=== PATIENT | male | born 1965 | race Caucasian/White ===

== ENCOUNTER 2021-09-02 22:28 | Emergency (ER) | payer OTHER ==
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
[2021-09-03 00:54] VITALS: RESP 20
[2021-09-03 01:00] VITALS: BP 141/78; PULSE 89; TEMP 97.9
== END 2021-09-03 00:45 | disposition other institution (70) ==
LOC: EC 22:28
DX: S00.01XA Abrasion of scalp, initial encounter (principal); S60.512A Abrasion of left hand, initial encounter; S60.511A Abrasion of right hand, initial encounter; F17.200 Nicotine dependence, unspecified, uncomplicated; F12.90 Cannabis use, unspecified, uncomplicated; Y35.811A Legal intervention involving manhandling, law enforcement official injured, initial encounter
CPT/HCPCS: 99284

== ENCOUNTER 2023-05-16 00:29 | Emergency (ER) | payer OTHER ==
[2023-05-16] MEDS ORDERED: SULFAMETHOX-TMP 800-160MG 1 EACH TAB PO STA (04:36)
--- NOTE | 2023-05-16 04:50 | ED ---
Skin/Abscess/FB HPI - General Chief complaint: Skin/Abscess/Foreign Body Stated complaint: Syncope Time Seen by Provider: 05/16/23 04:28 Source: patient Mode of arrival: EMS Limitations: no limitations - History of Present Illness Initial comments: This patient is 58-year-old man who presents to have evaluation for what he believes is infection in the right groin. The patient noticed that there were some small bumps that started draining. He has had previous abscess. Patient denies systemic symptoms, no fever or chills, chest pain, palpitations, or other symptoms. MD complaint: abscess/boil Onset/Timin -: days(s) Tetanus Up to Date: yes Location: genitals Severity: mild Improves with: none Worsens with: none Associated symptoms: denies other symptoms Treatments Prior to Arrival: attempted to drain pus at home - Related Data Previous Rx's Medication Instructions Recorded Albuterol Sulfate [Proair Hfa] 2 puff INHALATION Q6HR PRN #1 02/17/15 inhaler Amoxic-Pot Clav 875-125Mg 1 each PO Q12HR #20 tablet 02/17/15 [Augmentin Xr 875-125] guaiFENesin-Coden 100-10MG/5ML 10 ml PO Q4HR PRN #250 ml 02/17/15 [Robitussin AC] predniSONE [Deltasone] 20 mg PO BID #10 tab 02/17/15 Sulfamethox-Tmp 800-160Mg [Bactrim 2 each PO Q12HR #28 tab 05/16/23 Ds] Allergies Allergy/AdvReac Type Severity Reaction Status Date / Time No Known Allergies Allergy Verified 02/17/15 13:18 Review of Systems ROS Statement: Those systems with pertinent positive or pertinent negative responses have been documented in the HPI. ROS Other: All systems not noted in ROS Statement are negative. Constitutional: Denies: fever, chills Respiratory: Denies: dyspnea Cardiovascular: Denies: chest pain, palpitations Skin: Reports: as per HPI, other Past Medical History Past Medical History: No Reported History History of Any Multi-Drug Resistant Organisms: None Reported Additional Past Surgical History / Comment(s): 5 knee surgies Past Psychological History: No Psychological Hx Reported Smoking Status: Current every day smoker Past Alcohol Use History: Occasional Past Drug Use History: Marijuana General Exam Limitations: no limitations General appearance: alert, in no apparent distress Respiratory exam: Present: normal lung sounds bilaterally. Absent: respiratory distress, wheezes, rales, rhonchi, stridor Cardiovascular Exam: Present: regular rate, normal rhythm, normal heart sounds. Absent: systolic murmur, diastolic murmur, rubs, gallop Skin exam: Present: warm, dry, normal color, other (The patient has small area that appears consistent with folliculitis in the right groin area. There is no significant depth. No palpable fluctuance.) Course Vital Signs 05/16/23 05/16/23 00:54 06:56 Temperature 98.1 F 98.2 F Pulse Rate 88 84 Respiratory 18 16 Rate Blood Pressure 108/67 116/71 O2 Sat by Pulse 96 96 Oximetry Medical Decision Making - Medical Decision Making Was pt. sent in by a medical professional or institution ([facility], FOOD STYLIST, urgent care, hospital, or custodial...) When possible be specific @ -[No] Did you speak to anyone other than the patient for history (EMS, parent, family, police, friend...)? What history was obtained from this source @ -[No] Did you review nursing and triage notes (agree or disagree)? Why? @ -[I reviewed and agree with nursing and triage notes] Were old charts reviewed (outside hosp., previous admission, EMS record, old EKG, old radiological studies, urgent care reports/EKG's, custodial records)? Report findings @ -[No old charts were reviewed] Differential Diagnosis (chest pain, altered mental status, abdominal pain women, abdominal pain men, vaginal bleeding, weakness, fever, dyspnea, syncope, headache, dizziness, GI bleed, back pain, seizure, CVA, palpatations, mental health, musculoskeletal)? @ -[The differential diagnosis for the patient's infection includes folliculitis, cellulitis, abscess, amongst other conditions. EKG interpreted by me (3pts min.). @ -[As above] X-rays interpreted by me (1pt min.). @ -[None done] CT interpreted by me (1pt min.). @ -[None done] U/S interpreted by me (1pt. min.). @ -[None done] What testing was considered but not performed or refused? (CT, X-rays, U/S, labs)? Why? @ -[None] What meds were considered but not given or refused? Why? @ -[None] Did you discuss the management of the patient with other professionals (professionals i.e. , PA, FOOD STYLIST, lab, RT, psych nurse, clinical social worker, cullet crusher, teacher, juvenile probation officer, case assistant)? Give summary @ -[No] Was smoking cessation discussed for >3mins.? @ -[No] Was critical care preformed (if so, how long)? @ -[No] Were there social determinants of health that impacted care today? How? (Homelessness, low income, unemployed, alcoholism, drug addiction, transportation, low edu. Level, literacy, decrease access to med. care, fci, rehab)? @ -[No] Was there de-escalation of care discussed even if they declined (Discuss DNR or withdrawal of care, Hospice)? DNR status @ -[No] What co-morbidities impacted this encounter? (DM, HTN, Smoking, COPD, CAD, Cancer, CVA, ARF, Chemo, Hep., AIDS, mental health diagnosis, sleep apnea, morbid obesity)? @ -[None] Was patient admitted / discharged? Hospital course, mention meds given and route, prescriptions, significant lab abnormalities, going to OR and other pertinent info. @ -[Patient is 58-year-old man with what appears be folliculitis. We will start antibiotics and patient have close follow-up. We discussed further care as well as return parameters. Undiagnosed new problem with uncertain prognosis? @ -[No] Drug Therapy requiring intensive monitoring for toxicity (Heparin, Nitro, Insulin, Cardizem)? @ -[No] Were any procedures done? @ -[No] Diagnosis/symptom? @ -Folliculitis Acute, or Chronic, or Acute on Chronic? @ -[Acute Uncomplicated (without systemic symptoms) or Complicated (systemic symptoms)? @ -[Uncomplicated Side effects of treatment? @ -[No] Exacerbation, Progression, or Severe Exacerbation? @ -[No] Poses a threat to life or bodily function? How? (Chest pain, [place], [place], pneumonia, PE, COPD, DKA, ARF, appy, cholecystitis, CVA, Diverticulitis, Homicidal, Suicidal, threat to staff... and all critical care pts) @ -[No] - Lab Data Lab Results 05/16/23 Range/Units 04:56 Chlamydia DNA (PCR) Negative (Negative) N.gonorrhoeae DNA Probe Negative (Negative) Disposition Clinical Impression: Folliculitis Disposition: HOME SELF-CARE Condition: Good Instructions (If sedation given, give patient instructions): Folliculitis (ED) Prescriptions: Sulfamethox-Tmp 800-160Mg [Bactrim Ds] 2 each PO Q12HR #28 tab Is patient prescribed a controlled substance at d/c from ED?: No Referrals: None,Stated [Primary Care Provider] - 1-2 days
[2023-05-16 07:19] VITALS: BP 116/71; PULSE 84; RESP 16; TEMP 98.2
[2023-05-17 14:43] LABS: C. trachomatis,PCR Negative (Negative)
[2023-05-17 15:15] LABS: N. gonorrhoeae,PCR Negative (Negative)
== END 2023-05-16 06:57 | disposition home or self-care (01) ==
LOC: EC 00:29
DX: L73.9 Follicular disorder, unspecified (principal); F17.200 Nicotine dependence, unspecified, uncomplicated
CPT/HCPCS: 87491; 87591; 99284

== ENCOUNTER 2023-07-28 13:16 | Inpatient (IN) | payer OTHER ==
[2023-07-28] MEDS: KETOROLAC 15 MG/ML 1 ML VIAL IVP STA (15:22)
[2023-07-28] MEDS: HYDROmorphone 1 MG/ML 1 ML SYRINGE IVP STA (15:23)
--- NOTE | 2023-07-28 15:23 | ED ---
General Adult HPI - General Chief complaint: Shortness of Breath Stated complaint: headache/dizziness Time Seen by Provider: 07/28/23 14:15 Source: patient, RN notes reviewed, old records reviewed Mode of arrival: wheelchair Limitations: no limitations - History of Present Illness Initial comments: This is a 58-year-old male who presents to the emergency department stating 6 days ago he fell down the steps hit his head and lost consciousness and he went to [facility] where they determined he had 6 rib fractures on the left. Patient states he has had a headache ever since but they never did CAT scan. Patient denies any neck pain. Patient has numbness weakness. Patient states the rib pain is significant and it is not improving at all. Patient states he is not short of breath but it hurts to take any kind of deep breath. Patient de nies any new pain. Patient has any extremity pain. Patient has abdominal pain. Patient [place] any fever chills or cough - Related Data Home Medications Medication Instructions Recorded Confirmed Ibuprofen [Motrin] 600 mg PO Q8HR PRN 07/28/23 07/28/23 Allergies Allergy/AdvReac Type Severity Reaction Status Date / Time No Known Allergies Allergy Verified 07/28/23 14:25 Review of Systems ROS Statement: Those systems with pertinent positive or pertinent negative responses have been documented in the HPI. ROS Other: All systems not noted in ROS Statement are negative. Past Medical History Past Medical History: No Reported History History of Any Multi-Drug Resistant Organisms: None Reported Additional Past Surgical History / Comment(s): 5 knee surgies Past Psychological History: No Psychological Hx Reported Smoking Status: Current every day smoker Past Alcohol Use History: Occasional Past Drug Use History: Marijuana General Exam - General Exam Comments Initial Comments: GENERAL: Patient is well-developed and well-nourished. Patient is nontoxic and well- hydrated and is in moderate distress. ENT: Neck is soft and supple. No significant lymphadenopathy is noted. Oropharynx is clear. Moist mucous membranes. Neck has full range of motion without eliciting any pain. EYES: The sclera were anicteric and conjunctiva were pink and moist. Extraocular movements were intact and pupils were equal round and reactive to light. Eyelids were unremarkable. PULMONARY: Difficult to hear breath sounds because patient cannot take a deep breath without splinting CARDIOVASCULAR: There is a regular rate and rhythm without any murmurs gallops or rubs. Patient has significant rib pain at about ribs 6 through 12. No crepitus is felt ABDOMEN: Soft and nontender with normal bowel sounds. SKIN: Skin is clear with no lesions or rashes and otherwise unremarkable. NEUROLOGIC: Patient is alert and oriented x3. Cranial nerves II through XII are grossly intact. Motor and sensory are also intact. Normal speech, volume and content. Symmetrical smile. MUSCULOSKELETAL: Normal extremities with adequate strength and full range of motion. LYMPHATICS: No significant lymphadenopathy is noted PSYCHIATRIC: Normal psychiatric evaluation. Limitations: no limitations Course Vital Signs 07/28/23 13:38 Temperature 99.6 F Pulse Rate 108 H Respiratory 18 Rate Blood Pressure 155/79 O2 Sat by Pulse 96 Oximetry Medical Decision Making - Medical Decision Making Was pt. sent in by a medical professional or institution (, PA, GLOBAL RECRUITER, urgent care, hospital, or intermediate...) When possible be specific @ -No Did you speak to anyone other than the patient for history (EMS, parent, family, police, friend...)? What history was obtained from this source @ -No Did you review nursing and triage notes (agree or disagree)? Why? @ -I reviewed and agree with nursing and triage notes Were old charts reviewed (outside hosp., previous admission, EMS record, old EKG, old radiological studies, urgent care reports/EKG's, intermediate records)? Report findings @ -No old charts were reviewed Differential Diagnosis (chest pain, altered mental status, abdominal pain women, abdominal pain men, vaginal bleeding, weakness, fever, dyspnea, syncope, headac he, dizziness, GI bleed, back pain, seizure, CVA, palpatations, mental health, musculoskeletal)? @ -Pneumothorax, pleural effusion, hemothorax, multiple rib fractures, flail chest, spinal fracture, subarachnoid, subdural, epidural, skull fracture, cervical spine fracture, this is not an all-inclusive list EKG interpreted by me (3pts min.). @ -As above X-rays interpreted by me (1pt min.). @ -None done CT interpreted by me (1pt min.). @ -CT of the brain and C-spine showed no acute abnormality. CT of the chest shows fractures of ribs 5 through 12. There is a small pleural effusion on the left. Patient also has a T12 compression fracture with some retropulsion into the spinal canal. U/S interpreted by me (1pt. min.). @ -None done What testing was considered but not performed or refused? (CT, X-rays, U/S, labs)? Why? @ -None What meds were considered but not given or refused? Why? @ -None Did you discuss the management of the patient with other professionals (professionals i.e. Dr., PA, GLOBAL RECRUITER, lab, RT, psych nurse, social media assistant, buyer, teacher, mortgage loan officer, rehabilitation case coordinator)? Give summary @ -I spoke with Dr. Carrasco he agreed to admit the patient admit the patient I consulted sound physicians and I spoke with Dr. Mccall and he agreed to be on consult as well he will try to take the patient to surgery on Tuesday Was smoking cessation discussed for >3mins.? @ -No Was critical care preformed (if so, how long)? @ -35 minutes Were there social determinants of health that impacted care today? How? (Homelessness, low income, unemployed, alcoholism, drug addiction, transportation, low edu. Level, literacy, decrease access to med. care, fpc, rehab)? @ -No Was there de-escalation of care discussed even if they declined (Discuss DNR or withdrawal of care, Hospice)? DNR status @ -No What co-morbidities impacted this encounter? (DM, HTN, Smoking, COPD, CAD, Cancer, CVA, ARF, Chemo, Hep., AIDS, mental health diagnosis, sleep apnea, morbid obesity)? @ -None Was patient admitted / discharged? Hospital course, mention meds given and route, prescriptions, significant lab abnormalities, going to OR and other pertinent info. @ -Patient had CTs that showed fractures of the ribs 5 through [address] showed T12 fracture with fragments going into the spinal canal. Patient will be admitted to Dr. Carrasco consults will be done with ligia physicians as well as Dr. Mccall who anticipates taking the patient to surgery on Tuesday Undiagnosed new problem with uncertain prognosis? @ -No Drug Therapy requiring intensive monitoring for toxicity (Heparin, Nitro, Insulin, Cardizem)? @ -No Were any procedures done? @ -No Diagnosis/symptom? @ -T12 fracture with retropulsion Acute, or Chronic, or Acute on Chronic? @ -Acute Uncomplicated (without systemic symptoms) or Complicated (systemic symptoms)? @ -Complicated Side effects of treatment? @ -No Exacerbation, Progression, or Severe Exacerbation? @ -No Poses a threat to life or bodily function? How? (Chest pain, [place], [place], pneumonia, PE, COPD, DKA, ARF, appy, cholecystitis, CVA, Diverticulitis, Homicidal, Suicidal, threat to staff... and all critical care pts) @ -Yes this could lead to paralysis Diagnosis/symptom? @ -Multiple rib fractures Acute, or Chronic, or Acute on Chronic? @ -Acute Uncomplicated (without systemic symptoms) or Complicated (systemic symptoms)? @ -Complicated Side effects of treatment? @ -None Exacerbation, Progression, or Severe Exacerbation] @ -No Poses a threat to life or bodily function? @ -Yes this could lead to hypoxia and endorgan dysfunction Diagnosis/symptom? @ -Concussion Acute, or Chronic, or Acute on Chronic? @ -Acute Uncomplicated (without systemic symptoms) or Complicated (systemic symptoms)? @ -Complicated Side effects of treatment? @ -None Exacerbation, Progression, or Severe Exacerbation] @ -No Poses a threat to life or bodily function? @ -No - Lab Data Result diagrams: 07/28/23 15:22 07/28/23 15:22 Lab Results 07/28/23 07/28/23 Range/Units 15:22 15:22 WBC 5.9 (3.8-10.6) k/uL RBC 4.42 (4.30-5.90) m/uL Hgb 14.1 (13.0-17.5) gm/dL Hct 41.8 (39.0-53.0) % MCV 94.5 (80.0-100.0) fL MCH 31.8 (25.0-35.0) pg MCHC 33.6 (31.0-37.0) g/dL RDW 14.4 (11.5-15.5) % Plt Count 153 (150-450) k/uL MPV 7.3 Neutrophils % 73 % Lymphocytes % 10 % Monocytes % 13 % Eosinophils % 1 % Basophils % 1 % Neutrophils # 4.3 (1.3-7.7) k/uL Lymphocytes # 0.6 L (1.0-4.8) k/uL Monocytes # 0.8 (0-1.0) k/uL Eosinophils # 0.0 (0-0.7) k/uL Basophils # 0.1 (0-0.2) k/uL Sodium 131 L (137-145) mmol/L Potassium 4.4 (3.5-5.1) mmol/L Chloride 100 (98-107) mmol/L Carbon Dioxide 27 (22-30) mmol/L Anion Gap 4 mmol/L BUN 18 (9-20) mg/dL Creatinine 0.63 L (0.66-1.25) mg/dL Est GFR (CKD-EPI)AfAm >90 (>60 ml/min/1.73 sqM) Est GFR (CKD-EPI)NonAf >90 (>60 ml/min/1.73 sqM) Glucose 110 H (74-99) mg/dL Calcium 8.9 (8.4-10.2) mg/dL Total Bilirubin 0.9 (0.2-1.3) mg/dL AST 148 H (17-59) U/L ALT 56 H (4-49) U/L Alkaline Phosphatase 99 (38-126) U/L Total Protein 7.3 (6.3-8.2) g/dL Albumin 3.2 L (3.5-5.0) g/dL Disposition Clinical Impression: Traumatic compression fracture of T12 thoracic vertebra, Multiple rib fractures, Concussion Disposition: ADMITTED IP TO THIS [facility] Referrals: Roberto Hanley Jr, [Primary Care Provider] - 1-2 days Time of Disposition: 17:16
[2023-07-28 15:49] LABS: Basophils # (A) 0.1 k/uL (0-0.2); Basophils % (A) 1 %; Eosinophils % (A) 1 %; HCT 41.8 % (39.0-53.0); HGB 14.1 gm/dL (13.0-17.5); Lymphocytes # (A) 0.6 k/uL (1.0-4.8); Lymphocytes % (A) 10 %; MCH 31.8 pg (25.0-35.0); MCHC 33.6 g/dL (31.0-37.0); MCV 94.5 fL (80.0-100.0); Mean Platelet Volume 7.3; Monocytes # (A) 0.8 k/uL (0-1.0); Monocytes % (A) 13 %; Neutrophils # (A) 4.3 k/uL (1.3-7.7); Neutrophils % (A) 73 %; Platelet Count 153 k/uL (150-450); RBC 4.42 m/uL (4.30-5.90); RDW 14.4 % (11.5-15.5); WBC 5.9 k/uL (3.8-10.6)
--- NOTE | 2023-07-28 16:02 | CT ---
EXAMINATION TYPE: CT brain javierine wo con DATE OF EXAM: 07/28/2023 COMPARISON: None available. HISTORY: Fall downstairs. CT DLP: [id number] mGycm Automated exposure control for dose reduction was used. TECHNIQUE: CT scan of the head and cervical spine are performed without contrast. FINDINGS: There is no acute intracranial hemorrhage, mass effect, or midline shift identified. The ventricles and sulci are within normal limits in size. The globes are intact and the visualized sin uses are clear. Cervical spine is visualized in its entirety from C1 through upper thoracic levels and demonstrates s atisfactory alignment without evidence of acute fracture or dislocation. Prevertebral soft tissue ap pears within normal limits. The C1-C2 articulation is unremarkable. Scattered degenerative disc, fa cet and uncovertebral joint changes are seen. IMPRESSION: 1. There is no acute fracture or dislocation evident in the cervical spine. 2. No acute intracranial hemorrhage, mass effect, or midline shift is seen.
--- NOTE | 2023-07-28 16:09 | CT ---
Exam: CT Chest without contrast. Date: 07/28/2023. Comparison: None History: Fall down stairs. Technique: CT examination of the chest was performed without contrast. Coronal and sagittal reformats were performed. CT dose lowering techniques were used, to include: automated exposure control, adjus tment for patient size, and/or use of iterative reconstruction. FINDINGS: Mediastinum and Jessie: There is no axillary, mediastinal or hilar lymphadenopathy. Pleural and Pericardial spaces: Trace left pleural effusion is seen. Upper Abdomen: There is a diffuse nodular contour to the liver which is compatible with cirrhosis. Th ere is a small sliding hiatal hernia. Spleen is enlarged measuring 14.1 cm. Cardiovascular: The thoracic aorta is normal in size. Patchy coronary calcium is seen. Lung Parenchyma and Airways: There are a few scattered bands of opacity seen throughout the lungs rommel aterally which are likely atelectasis. Bones: Nondisplaced fracture of the posterior left fifth rib. Nondisplaced fracture of the posterior left sixth rib. Moderately displaced fracture of the posterior left seventh rib. Moderately displaced fracture of the posterior left eighth rib. Nondisplaced fracture of the posterior left ninth rib. No ndisplaced fracture of the posterior left 10th rib. Mild to moderately displaced fracture of the post erior left 11th rib. Nondisplaced fracture of the posterior left 12th rib. Is placed fracture of the anterolateral left sixth rib. Mildly displaced fracture of the lateral left seventh rib. Nondisplaced fracture of the anterolateral left eighth rib. Nondisplaced fractures anterolateral left ninth rib. There is a compression deformity of the L1 vertebral body which has an acute appearance and has appro ximately 60 to slightly greater than 60% vertebral body height loss. A retropulsed fragment is seen w ith moderate central canal stenosis and possibly cord compression. IMPRESSION: 1. Numerous left-sided rib fractures as above. 2. Acute compression deformity of the superior endplate of the T12 vertebral body with approximately 60% vertebral body leg loss. A retropulsed fragment is seen causing moderate central canal stenosis a nd possible compression of the cord. 3. Trace left pleural effusion. 4. Cirrhosis and splenomegaly. 5. Mild coronary artery calcification. 6. Hiatal hernia.
[2023-07-28 16:16] LABS: ALT 56 U/L (4-49); AST 148 U/L (17-59); African American GFR (CKD) >90 (>60 ml/min/1.73 sqM); Albumin 3.2 g/dL (3.5-5.0); Alkaline Phosphatase 99 U/L (38-126); Anion Gap 4 mmol/L; Blood Urea Nitrogen 18 mg/dL (9-20); Calcium 8.9 mg/dL (8.4-10.2); Carbon Dioxide 27 mmol/L (22-30); Chloride 100 mmol/L (98-107); Glucose 110 mg/dL (74-99); Non-African American GFR(CKD) >90 (>60 ml/min/1.73 sqM); Potassium 4.4 mmol/L (3.5-5.1); Sodium 131 mmol/L (137-145); Total Bilirubin 0.9 mg/dL (0.2-1.3); Total Protein 7.3 g/dL (6.3-8.2)
[2023-07-28] MEDS ORDERED: MORPHINE SULFATE 2 MG/ML SYRINGE IVP PRN (17:20)
[2023-07-28] MEDS ORDERED: NALOXONE 0.4 MG/ML 1 ML VIAL IV PRN (17:20)
[2023-07-28] MEDS: SODIUM CHLORIDE 0.9% 1,000 ML IV ONE (17:30)
[2023-07-28] MEDS: MORPHINE SULFATE 4 MG/ML SYRINGE IVP PRN (17:30)
--- NOTE | 2023-07-28 18:17 | P.PN ---
Progress Note - Text Progress Note Date: 07/28/23 Ct reviewed. Discussed with ED provider. Pt has unstable fracture at T12 from fall down stairs. Also has multiple rib fractures and TVP fractures. The T12 fracture will need stabilization as it is a burst fracture with posterior element involvement. There is also severe spondylosis at L4-5, however this is likely a chronic condition which could be exacerbated by the fall. There is moderate stenosis related to the T12 fracture and retropulsed fragment as well as the height loss due to the burst. We will plan on surgical fixation with open treatment of T12 fracture and T11-L1 stabilization. Earliest time available and pending clearances. Right now planning for 07/30/23 in AM. W ould recommend pt be bed rest at this time. Would recommend pain control. Needs medical clearances for surgical intervention. Full consult pending.
--- NOTE | 2023-07-28 18:19 | CT ---
EXAMINATION TYPE: CT thor lumbar spine wo con DATE OF EXAM: 07/28/2023 HISTORY: Fell down stairs fx CT DLP: 1697 mGycm. Automated exposure control for dose reduction was used. COMPARISON: Please note same day CT chest and CT brain/C-spine reports. FINDINGS/IMPRESSION: There is a complex T12 vertebral segment fracture with a retropulsed fragment narrowing the canal to 40% of its usual area. The vertical height of the vertebral body is approximately one half of its nor mal height. Fracture lines seen at the junction of the vertebral body with the pedicles bilaterally a nd a fracture line through the posterior elements is also present. Other fractures include: There are posterior rib fractures from T4 through T12, nearly all of which are nondisplaced or mildly displaced but T8 shows 1 shaft width anterior displacement (page 71 of 190) and T7 shows one half sh aft width anterior displacement (image 61 of 190). Right L4 transverse process shows nondisplaced fracture. Right L5 transverse process shows displaced fracture. Incidentals: Moderate coronary calcifications. Lower esophageal circumferential mural thickening with periesophageal subcentimeter lymph nodes; woul d suggest nonurgent direct visualization. Advanced degenerative disc and facet changes at L4-5. Results discussed with ordering physician at 6:00 PM 07/28/2023.
[2023-07-28] MEDS: MAG HYDROX/AL HYDROX/SIMETH 30 ML CUP PO ONE (18:38)
[2023-07-28] MEDS: FAMOTIDINE 20 MG/2 ML VIAL IV STA (18:39)
[2023-07-28] MEDS: LORazepam 2 MG/ML INJ IV STA (18:39)
[2023-07-28] MEDS ORDERED: HYDROmorphone 0.5 MG/0.5 ML SYRINGE IVP PRN (21:59)
[2023-07-28] MEDS: HYDROmorphone 1 MG/ML 1 ML SYRINGE IVP PRN (22:10)
[2023-07-29] MEDS: ACETAMINOPHEN TAB 325 MG TAB PO STA (02:32)
[2023-07-29] MEDS: PROCHLORPERAZINE 5 MG TAB PO STA (02:33)
--- NOTE | 2023-07-29 04:32 | P.CONS ---
History of Present Illness - Reason for Consult Consult date: 07/28/23 Medical clearance - Chief Complaint Back pain - History of Present Illness 58-year-old male no significant past medical history Patient coming in for worsening back pain he had an accidental fall about a week ago where he fell down a set of stairs hit his head lost consciousness hit his side and hit his back. At that time he was taken to [facility] for evaluation was found to have rib fracture on the left side and then was released home. Patient claims that he did not get proper care he was complaining of headache and back pain that no CAT scan was done and he was told that he is fin e. However due to not improving over the past week with increased numbness and tingling in his lower extremities and weakness along with severe left rib pain he decided to come back for evaluation Patient reports pleuritic chest pain with deep breath and movement over the left side. Reports increased difficulty with ambulation due to weakness lower extremities along with some numbness denies any changes in urinary or bowel habits. Denies any fevers or chills denies any shortness of breath denies any abdominal pain denies any bleeding. review of systems Pertinent positives as noted in HPI. All other systems were reviewed and are negative on exam Constitutional: No acute distress, conversant, pleasant Eyes: Anicteric sclerae, moist conjunctiva, Pupils equal round reactive to light ENMT: NC/AT Oropharynx clear, no erythema, or exudates Neck: Supple, no masses, or JVD No carotid bruits No thyromegaly Lungs: Clear to auscultation Clear to percussion Normal respiratory effort, no accessory muscle use Cardiovascular: Heart regular in rate and rhythm, No murmurs, gallops, or rubs No peripheral edema Abdominal: Soft Nontender, no guarding, rebound or rigidity Abdomen moving with respiration Normoactive bowel sounds Extremities: No digital cyanosis No clubbing Pedal pulses intact and symmetrical Radial pulses intact and symmetrical No calf tenderness Psychiatric: Alert and oriented to person, place and time Appropriate affect fair judgement Neuro patient able to move all 4 extremities with limited exam over bilateral lower extremity due to severe pain of lower back. Sensation to light touch is grossly intact Past Medical History Past Medical History: No Reported History Additional Past Medical History / Comment(s): psoriasis History of Any Multi-Drug Resistant Organisms: None Reported Additional Past Surgical History / Comment(s): 5 knee surgies Past Anesthesia/Blood Transfusion Reactions: No Reported Reaction Past Psychological History: No Psychological Hx Reported Smoking Status: Current every day smoker Past Alcohol Use History: Heavy Additional Past Alcohol Use History / Comment(s): Pt states that he has a fifth of vodka anywhere from 2-4 days a week. Pt states ryne he has quit before in the past and mostly drink due to pain. Past Drug Use History: Marijuana Medications and Allergies Home Medications Medication Instructions Recorded Confirmed Type Ibuprofen [Motrin] 600 mg PO Q8HR PRN 07/28/23 07/28/23 History Hydrocortisone Cream 1 applic TOPICAL BID 07/29/23 07/29/23 History [Hydrocortisone 1% Cream] Allergies Allergy/AdvReac Type Severity Reaction Status Date / Time No Known Allergies Allergy Verified 07/28/23 14:25 Physical Exam Vitals: Vital Signs Temp Pulse Pulse Resp BP BP Pulse Ox 07/29/23 01:36 100.5 F H 103 H 17 120/67 94 L 07/28/23 21:33 99.6 F 96 18 151/79 99 07/28/23 20:37 98 18 117/69 94 L 07/28/23 18:39 90 18 114/60 96 07/28/23 13:38 99.6 F 108 H 18 155/79 96 Intake and Output 07/28/23 07/28/23 07/29/23 14:59 22:59 06:59 Other: Weight 99.79 kg 99.79 kg Results CBC & Chem 7: 07/28/23 15:22 07/28/23 15:22 Labs: Abnormal Lab Results - Last 24 Hours (Table) 07/28/23 07/28/23 Range/Units 15:22 15:22 Lymphocytes # 0.6 L (1.0-4.8) k/uL Sodium 131 L (137-145) mmol/L Creatinine 0.63 L (0.66-1.25) mg/dL Glucose 110 H (74-99) mg/dL AST 148 H (17-59) U/L ALT 56 H (4-49) U/L Albumin 3.2 L (3.5-5.0) g/dL Assessment and Plan Assessment: Traumatic injury of the back secondary to accidental fall CT scan of the head no acute intracranial pathology CT scan of the chest shows numerous left-sided rib fracture Acute compression deformity of the superior endplate of the T12 vertebral body with approximately 60% vertebral body leg loss retropulsed fragment is seen causing moderate central canal stenosis and possible compression of the cord Incidental finding of cirrhosis and splenomegaly along with mild coronary artery calcification Management per primary trauma team Pain control with Dilaudid Orthopedic team planning on surgical intervention to stabilize T12 fracture Chronic GERD Incidental finding of lower esophageal circumferential mural thickening with periesophageal subcentimeter lymph node Patient counseled to consider outpatient follow-up with GI specialist for possible EGD Protonix 40 mg p.o. twice daily Patient is a 58-year-old male with no significant past medical history coming in with severe back pain and rib pain found to have multiple fractures due to accidental fall. Patient denies any recent history of myocardial infarction, CHF, seizures, arrhythmia, syncope. At baseline patient is active and functional at METS more than 4 with no limitations able to climb 2 flights of stairs with no limitations. Patient denies any history of stroke congestive heart failure coronary artery disease diabetes mellitus CKD. Labs reviewed EKG reviewed no acute ST changes. Patient can proceed to planned surgical intervention to stabilize T12 fracture with moderate but acceptable perioperative cardiovascular risk (related to type of surgery) with no modifiable risk factors at this time. This was communicated to the patient and has fianc all questions were addressed. Blood work showing white count 5.9 hemoglobin 14.1 platelets 153 Mild hyponatremia sodium 131 IV fluid hydration with normal saline Renal function otherwise unremarkable BUN 18 creatinine 0.6 potassium 4.4 Slightly elevated liver enzymes AST [address] scan suggestive of cirrhosis and splenomegaly Bilirubin is 0.9, alk phos 99 both unremarkable Albumin 3.2 Check PT/INR Patient denies any history of hepatitis Continue to monitor Thank you for this consultation
[2023-07-29] MEDS: PANTOPRAZOLE 40 MG TABLET PO SCH (06:28)
[2023-07-29] MEDS ORDERED: LORazepam 2 MG/ML INJ IV PRN ×3 (07:49)
--- NOTE | 2023-07-29 08:09 | XR ---
EXAMINATION TYPE: XR chest 1V portable DATE OF EXAM: 07/29/2023 7:50 AM CLINICAL INDICATION:Male, 58 years old with history of Chest Trauma; [facility] COMPARISON: Chest radiographs from 12/09/2010, CT 07/28/2023. TECHNIQUE: XR chest 1V portable Frontal view of the chest. FINDINGS: Rotated exam. Lungs/Pleura: There is no evidence of pleural effusion, focal consolidation, or pneumothorax. Pulmonary vascularity: Unremarkable. Heart/mediastinum: Cardiomediastinal silhouette is enlarged and stable. Musculoskeletal: Multiple left-sided rib fractures as seen on prior CT. IMPRESSION: Rotated exam with increased interstitial opacities compared to prior.
[2023-07-29 08:33] LABS: Basophils # (A) 0.04 X 10*3/uL (0.00-0.10); Basophils % (A) 0.9 %; Eosinophils # (A) 0.02 X 10*3/uL (0.04-0.35); Eosinophils % (A) 0.4 %; HCT 37.3 % (39.6-50.0); HGB 12.7 g/dL (13.0-17.0); Lymphocytes # (A) 0.83 X 10*3/uL (0.90-5.00); Lymphocytes % (A) 18.2 %; MCH 30.9 pg (27.0-32.0); MCV 90.8 FL (80.0-97.0); Mean Platelet Volume 9.8 FL (9.5-12.2); Monocytes # (A) 0.79 X 10*3/uL (0.20-1.00); Monocytes % (A) 17.4 %; NRBC Per 100 WBC 0 X 10*3/uL (0.00-0.01); Neutrophils # (A) 2.85 X 10*3/uL (1.80-7.70); Neutrophils % (A) 62.7 %; Platelet Count 144 X 10*3/uL (140-440); RBC 4.11 X 10*6/uL (4.40-5.60); RDW 14.7 % (11.5-14.5); WBC 4.55 X 10*3/uL (4.50-10.00)
[2023-07-29 08:50] LABS: INR 1.29 sec (0.93-1.11); Prothrombin Time 13.7 sec (9.9-11.9)
[2023-07-29 08:55] LABS: BUN/Creat Ratio 23.43 Ratio (12.00-20.00); Blood Urea Nitrogen 16.4 mg/dL (9.0-27.0); Carbon Dioxide 26.2 mmol/L (21.6-31.8); Chloride 100 mmol/L (96-109); Glucose 111 mg/dL (70-110); Potassium 4.2 mmol/L (3.5-5.5); Sodium 133 mmol/L (135-145)
[2023-07-29 08:56] LABS: ALT 56 U/L (10-49); AST 150 U/L (14-35); Albumin/Globulin Ratio 0.88 Ratio (1.60-3.17); Alkaline Phosphatase 81 U/L (41-126); Calcium 8.2 mg/dL (8.7-10.3); Globulin 3.4 g/dL (1.6-3.3); Total Bilirubin 0.6 mg/dL (0.3-1.2); Total Protein 6.4 g/dL (6.2-8.2)
[2023-07-29] MEDS: MULTIVITAMINS, THERA 1 EACH TAB PO SCH (09:48)
[2023-07-29] MEDS: FOLIC ACID 1 MG TAB PO SCH (09:48)
[2023-07-29] MEDS: THIAMINE 100 MG/ML 2 ML VIAL IM STA (09:48)
[2023-07-29] MEDS: IPRATROPIUM-ALBUTEROL 3 ML NEB INHALATION SCH (10:56)
--- NOTE | 2023-07-29 11:43 | P.PAINCN ---
History of Present Illness - Reason for Consult Consult date: 07/29/23 Mid back and chest wall pain - Chief Complaint Pain in OR mid back and left chest wall - History of Present Illness This is a 58-year-old gentleman who comes with compression fracture of T12 and multiple fractures on the left side. Patient is scheduled to have surgery tomorrow for decompression of vertebral fracture. The patient is getting Dilantin with IV on when necessary basis with some improvement of pain. At this time both his low mid back and chest wall bothering him significantly. Patient denies any motor or sensory loss in the lower extremities. Denies any bowel or bladder dysfunction. Pain clinic has been asked to consult mainly for pain control at this time. Past Medical History Past Medical History: No Reported History Additional Past Medical History / Comment(s): psoriasis History of Any Multi-Drug Resistant Organisms: None Reported Additional Past Surgical History / Comment(s): 5 knee surgies Past Anesthesia/Blood Transfusion Reactions: No Reported Reaction Past Psychological History: No Psychological Hx Reported Smoking Status: Current every day smoker Past Alcohol Use History: Heavy Additional Past Alcohol Use History / Comment(s): Pt states that he has a fifth of vodka anywhere from 2-4 days a week. Pt states ryne he has quit before in the past and mostly drink due to pain. Past Drug Use History: Marijuana Medications and Allergies Home Medications Medication Instructions Recorded Confirmed Type Ibuprofen [Motrin] 600 mg PO Q8HR PRN 07/28/23 07/28/23 History Hydrocortisone Cream 1 applic TOPICAL BID 07/29/23 07/29/23 History [Hydrocortisone 1% Cream] Allergies Allergy/AdvReac Type Severity Reaction Status Date / Time No Known Allergies Allergy Verified 07/28/23 14:25 Physical Exam Vitals: Vital Signs Temp Pulse Pulse Pulse Resp BP BP 07/29/23 11:09 96 07/29/23 10:56 96 07/29/23 08:12 99.1 F 97 17 141/89 07/29/23 01:36 100.5 F H 103 H 17 120/67 07/28/23 21:33 99.6 F 96 18 151/79 07/28/23 20:37 98 18 117/69 07/28/23 18:39 90 18 114/60 07/28/23 13:38 99.6 F 108 H 18 155/79 Pulse Ox 07/29/23 11:09 07/29/23 10:56 07/29/23 08:12 94 L 07/29/23 01:36 94 L 07/28/23 21:33 99 07/28/23 20:37 94 L 07/28/23 18:39 96 07/28/23 13:38 96 Intake and Output 07/28/23 07/29/23 07/29/23 22:59 06:59 14:59 Output Total 600 Balance -600 Output: Urine 600 Other: Voiding Method Urinal Weight 99.79 kg - Neurologic Limited physical examination was done secondary to patient's pain. Thoracic spine tenderness in the lower part Both midline and paraspinal areas. Bilateral lower thoracic spine paraspinal muscle tenderness. Spine range of motion limited secondary to pain. Tenderness over day posterior and anterolateral rib cage in the left side. On neurological exam, which was limited secondary to patient's pain, lower extremity motor strength at knees and ankles toes 5 over 5. Sensation to touch intact bilaterally. Results CBC & Chem 7: 07/29/23 05:45 07/29/23 05:45 Labs: Abnormal Lab Results - Last 24 Hours (Table) 07/28/23 07/28/23 07/29/23 Range/Units 15:22 15:22 05:45 RBC 4.11 L (4.40-5.60) X 10*6/uL Hgb 12.7 L (13.0-17.0) g/dL Hct 37.3 L (39.6-50.0) % RDW 14.7 H (11.5-14.5) % Lymphocytes # 0.6 L 0.83 L (1.0-4.8) k/uL Eosinophils # 0.02 L (0.04-0.35) X 10*3/uL PT (9.9-11.9) sec INR (0.93-1.11) sec Sodium 131 L (137-145) mmol/L Creatinine 0.63 L (0.66-1.25) mg/dL BUN/Creatinine Ratio (12.00-20.00) Ratio Glucose 110 H (74-99) mg/dL Calcium (8.7-10.3) mg/dL AST 148 H (17-59) U/L ALT 56 H (4-49) U/L Albumin 3.2 L (3.5-5.0) g/dL Globulin (1.6-3.3) g/dL Albumin/Globulin Ratio (1.60-3.17) Ratio 07/29/23 07/29/23 Range/Units 05:45 05:45 RBC (4.40-5.60) X 10*6/uL Hgb (13.0-17.0) g/dL Hct (39.6-50.0) % RDW (11.5-14.5) % Lymphocytes # (1.0-4.8) k/uL Eosinophils # (0.04-0.35) X 10*3/uL PT 13.7 H (9.9-11.9) sec INR 1.29 H (0.93-1.11) sec Sodium 133 L (137-145) mmol/L Creatinine (0.66-1.25) mg/dL BUN/Creatinine Ratio 23.43 H (12.00-20.00) Ratio Glucose 111 H (74-99) mg/dL Calcium 8.2 L (8.7-10.3) mg/dL AST 150 H (17-59) U/L ALT 56 H (4-49) U/L Albumin 3.0 L (3.5-5.0) g/dL Globulin 3.4 H (1.6-3.3) g/dL Albumin/Globulin Ratio 0.88 L (1.60-3.17) Ratio Assessment and Plan (1) T12 compression fracture Current Visit: Yes Status: Acute Code(s): S22.080A - WEDGE COMPRESSION FRACTURE OF T11-T12 VERTEBRA, INIT SNOMED Code(s): 763361586 (2) Multiple fractures of ribs of left side Current Visit: Yes Status: Acute Code(s): S22.42XA - MULTIPLE FRACTURES OF RIBS, LEFT SIDE, INIT FOR CLOS FX SNOMED Code(s): 4022794 Plan: 1. Patient is scheduled for surgery tomorrow for T12 compression fracture. 2. For pain control from a fractures, epidural is not indicated at this time because of impending surgery. 4 general pain control, would suggest- a. Patient-controlled analgesia with Dilaudid. b. Gabapentin 300 mg by mouth 2-3 times a day. c. Baclofen 10 mg by mouth 2-3 times a day. Time with Patient: Less than 30 PQRS Measure Charge Sheet PQRS Narrative: Smoking Status Current every day smoker Blood Pressure [Left Arm 141/89 Supine] Blood Pressure 117/69 Pain Intensity [Left Abdomen] 10 Pain Intensity 0 Pain Scale Used Non Verbal Pain Indicator Scale Used Numeric (1 - 10) Home Medications: Ambulatory Orders Ibuprofen [Motrin] 600 mg PO Q8HR PRN 07/28/23 Hydrocortisone Cream [Hydrocortisone 1% Cream] 1 applic TOPICAL BID 07/29/23
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
[2023-07-29 12:37] VITALS: BMI 26.7
--- NOTE | 2023-07-29 13:45 | P.CNOR ---
History of Present Illness - [facility] Consult date: 07/29/23 Requesting physician: Prashanth Candelaria Consult reason: other (T12 compression fracture with retropulsion) History of present illness: Patient is a 58-year-old male who presented the emergency department yesterday due to back pain and rib pain. Patient states 6 days ago he fell down steps at home hit his head and lost consciousness and went to [facility] where they determined he had 6 rib fractures on the left side. Orthopedics was consulted due to rib fractures and T12 burst fracture. Patient was seen at bedside this morning lying semirecumbent position with family member present during encounter. Patient states about 6 days ago he fell down steps at home and hit his head patient says over the past 6 days he has not been able move around and has been having off time of pain in the back. Patient denies radiation down the legs. Patient has tried some [id number] pain medication with no relief. Patient says anytime he takes a deep breath he has a lot of intense pain. Patient denies being on any blood thinners. Patient denies any upper extremities/lower extremity pain. Patient says the back pain is localized to the mid/low back and describes it as intense in nature and sometimes stabbing. Patient denies any saddle anesthesia. Patient says he has been able to urinate okay without issue. Patient denies chest pain, fever, shortness nausea, vomiting, change in vision, loss of bowel/bladder control. Past Medical History Past Medical History: No Reported History Additional Past Medical History / Comment(s): psoriasis History of Any Multi-Drug Resistant Organisms: None Reported Additional Past Surgical History / Comment(s): 5 knee surgies Past Anesthesia/Blood Transfusion Reactions: No Reported Reaction Past Psychological History: No Psychological Hx Reported Smoking Status: Current every day smoker Past Alcohol Use History: Heavy Additional Past Alcohol Use History / Comment(s): Pt states that he has a fifth of vodka anywhere from 2-4 days a week. Pt states ryne he has quit before in the past and mostly drink due to pain. Past Drug Use History: Marijuana Medications and Allergies Home Medications Medication Instructions Recorded Confirmed Type Ibuprofen [Motrin] 600 mg PO Q8HR PRN 07/28/23 07/28/23 History Hydrocortisone Cream 1 applic TOPICAL BID 02/23/24 02/23/24 History [Hydrocortisone 1% Cream] Allergies Allergy/AdvReac Type Severity Reaction Status Date / Time No Known Allergies Allergy Verified 07/28/23 14:25 Physical Examination Inspection: Negative for any open fractures or significant erythema or open wounds. Some generalized ecchymosis present throughout the torso. Sensation: Equal, symmetric, bilaterally intact throughout the upper and lower extremities. Palpation: There is moderate to severe tenderness to patient diffusely throughout the lower thoracic and upper lumbar spine. Moderate tenderness patient over the lower lumbar spine and midline there is generalized paravertebral tenderness to palpation throughout the lower thoracic and lumbar spines. Significant tenderness patient over the posterior rib cage. Nontender to palpation throughout rest exam. Range of motion: Patient does have some limited range of motion in the bilateral lower extremities and hip flexion and extension secondary to referred pain to the back. Patient has full range of motion throughout bilateral upper extremity is on exam Motor: 4/5 in all major motor groups in bilateral lower extremity. 5/5 in all major motor groups in bilateral upper extremity. Neurovascular: Radial pulse intact, 2+ bilaterally. Cap refill under 3 seconds in digits in upper extremities. Special tests: Negative Homans bilaterally. Negative Paulette bilaterally. Negative clonus bilaterally. Results - Labs Labs: Abnormal Lab Results - Last 24 Hours (Table) 07/28/23 07/28/23 07/29/23 Range/Units 15:22 15:22 05:45 RBC 4.11 L (4.40-5.60) X 10*6/uL Hgb 12.7 L (13.0-17.0) g/dL Hct 37.3 L (39.6-50.0) % RDW 14.7 H (11.5-14.5) % Lymphocytes # 0.6 L 0.83 L (1.0-4.8) k/uL Eosinophils # 0.02 L (0.04-0.35) X 10*3/uL PT (9.9-11.9) sec INR (0.93-1.11) sec Sodium 131 L (137-145) mmol/L Creatinine 0.63 L (0.66-1.25) mg/dL BUN/Creatinine Ratio (12.00-20.00) Ratio Glucose 110 H (74-99) mg/dL Calcium (8.7-10.3) mg/dL AST 148 H (17-59) U/L ALT 56 H (4-49) U/L Albumin 3.2 L (3.5-5.0) g/dL Globulin (1.6-3.3) g/dL Albumin/Globulin Ratio (1.60-3.17) Ratio 07/29/23 07/29/23 Range/Units 05:45 05:45 RBC (4.40-5.60) X 10*6/uL Hgb (13.0-17.0) g/dL Hct (39.6-50.0) % RDW (11.5-14.5) % Lymphocytes # (1.0-4.8) k/uL Eosinophils # (0.04-0.35) X 10*3/uL PT 13.7 H (9.9-11.9) sec INR 1.29 H (0.93-1.11) sec Sodium 133 L (137-145) mmol/L Creatinine (0.66-1.25) mg/dL BUN/Creatinine Ratio 23.43 H (12.00-20.00) Ratio Glucose 111 H (74-99) mg/dL Calcium 8.2 L (8.7-10.3) mg/dL AST 150 H (17-59) U/L ALT 56 H (4-49) U/L Albumin 3.0 L (3.5-5.0) g/dL Globulin 3.4 H (1.6-3.3) g/dL Albumin/Globulin Ratio 0.88 L (1.60-3.17) Ratio H & H 07/28/23 07/29/23 Range/Units 15:22 05:45 Hgb 14.1 12.7 L (13.0-17.5) gm/dL Hct 41.8 37.3 L (39.0-53.0) % Coagulation 07/29/23 Range/Units 05:45 INR 1.29 H (0.93-1.11) sec Result Diagrams: 07/29/23 05:45 07/29/23 05:45 - Diagnostic results CT Scan - lumbar: report reviewed, image reviewed (Computed tomography scan of the thoracolumbar spine does reveal burst fracture at T12. There is also evident rib fractures posteriorly from his ribs 6 through 12. There is some generalized stenosis at L4 to L5.) Assessment and Plan Assessment: 1. T12 burst fracture; back pain; posterior rib fractures from 6 through 12; L4-L5 stenosis Plan: 1. T12 burst fracture; back pain; posterior rib fractures from 6 through 12; L4- L5 stenosis - computed tomography scan of the thoracolumbar spine does reveal burst fracture at T12. There is also evident rib fractures posteriorly from his ribs 6 through 12. There is some generalized stenosis at L4 to L5. After discussing the findings with my attending, Dr. Mccall, we are recommending surgical intervention in the form of treatment of T12 fracture with stabilization from T11 to L1. I did discuss the findings of the imaging with the patient and his family are at bedside this afternoon. Plan for surgery tomorrow, 07/30/2023 T11 through L1 stabilization and treatment of T12 burst fracture. Patient to be nothing by mouth at midnight tonight. Pain medication as needed. Nonweightbearing at this time. We will continue to follow patient during [facility]. 2. Appreciate medical management and other specialty recommendations 3. Pain management - Dilaudid 4. DVT prophylaxis - heparin 5. GI prophylaxis - Protonix 6. PT/OT - nonweightbearing at this time 7. Encourage incentive spirometer use 8. Appreciate consult Time with Patient: Less than 30
--- NOTE | 2023-07-29 13:45 | P.CNPUL ---
History of Present Illness Consult date: 07/29/23 Requesting physician: Stevie Carrasco Reason for consult: dyspnea, chest pain, pleural effusion, abnormal CXR/CT Chief complaint: Chest trauma. History of present illness: Pulmonary/critical care consultation dated July 29, 2023. 58-year-old male without any past medical history, who apparently was at [facility], after falling, 6 days ago. There he was evaluated, and had some x-rays done, which determined that he had some rib fractures on the left side. He apparently hit his head, and did lose consciousness. Apparently he did not have a CAT scan or x-rays of the spine, at the outside facility. The patient presents to the emergency room, complaining of pain in the left side of his chest, from his rib fractures, and some back pain as well. In addition, he cannot take a deep breath. The patient was found to have significant rib fractures on the left, as well as some fractures of the lower thoracic spine, and lumbar spine. Laboratory data includes a white count 4.55, hemoglobin 12.7, hematocrit 37.3, and platelet count 144,000. PT is 13.7 with an INR 1.29. Sodium 133, potassium 4.2, chlorides 100, CO2 26, BUN 16, creatinine 0.7. Close is 111. Calcium 8.2. AST 150. ALT 56. X-rays of the head and cervical spine were negative. Chest CT shows numerous left-sided rib fractures, a compression deformity of T12, and a trace left-sided pleural effusion. There is also cirrhosis and splenomegaly, and hiatal hernia. In addition, there were posterior rib fractures from T4-T12. As well as L4 transverse process nondisplaced fracture, and an L5 transverse process showing a displaced fracture. Review of Systems REVIEW OF SYSTEMS: CONSTITUTIONAL: [Negative.] NEUROLOGIC: [ Negative.] HEENT: [ Negative.] CARDIAC: Chest pain. PULMONARY: Chest pain, difficulty in taking a deep breath. GI: [Negative.] : [Negative.] RHEUMATOLOGIC: Back pain. IMMUNOLOGIC: [ Negative.] ENDOCRINE: [Negative. ] DERMATOLOGIC: [Negative.] Past Medical History Past Medical History: No Reported History Additional Past Medical History / Comment(s): psoriasis History of Any Multi-Drug Resistant Organisms: None Reported Additional Past Surgical History / Comment(s): 5 knee surgies Past Anesthesia/Blood Transfusion Reactions: No Reported Reaction Past Psychological History: No Psychological Hx Reported Smoking Status: Current every day smoker Past Alcohol Use History: Heavy Additional Past Alcohol Use History / Comment(s): Pt states that he has a fifth of vodka anywhere from 2-4 days a week. Pt states ryne he has quit before in the past and mostly drink due to pain. Past Drug Use History: Marijuana Medications and Allergies Home Medications Medication Instructions Recorded Confirmed Type Ibuprofen [Motrin] 600 mg PO Q8HR PRN 07/28/23 07/28/23 History Hydrocortisone Cream 1 applic TOPICAL BID 07/29/23 07/29/23 History [Hydrocortisone 1% Cream] Allergies Allergy/AdvReac Type Severity Reaction Status Date / Time No Known Allergies Allergy Verified 07/28/23 14:25 Physical Exam Osteopathic Statement: *. No significant issues noted on an osteopathic structural exam other than those noted in the History and Physical/Consult. Vitals: Vital Signs Temp Pulse Pulse Pulse Resp BP BP 07/29/23 11:09 96 07/29/23 10:56 96 07/29/23 08:12 99.1 F 97 17 141/89 07/29/23 01:36 100.5 F H 103 H 17 120/67 07/28/23 21:33 99.6 F 96 18 151/79 07/28/23 20:37 98 18 117/69 07/28/23 18:39 90 18 114/60 07/28/23 13:38 99.6 F 108 H 18 155/79 Pulse Ox 07/29/23 11:09 07/29/23 10:56 07/29/23 08:12 94 L 07/29/23 01:36 94 L 07/28/23 21:33 99 07/28/23 20:37 94 L 07/28/23 18:39 96 07/28/23 13:38 96 Intake and Output 07/28/23 07/29/23 07/29/23 22:59 06:59 14:59 Output Total 600 Balance -600 Output: Urine 600 Other: Voiding Method Urinal Weight 99.79 kg 99.79 kg No acute distress, oriented 3. Room air saturation 94%. HEENT examination is grossly unremarkable. Mucous membranes are moist. No oral lesions. Neck supple. Full range of motion. No adenopathy thyromegaly or neck vein distention. Cardiovascular examination reveals regular rhythm rate. S1-S2 normal. No S3 or S4. No discernible murmur noted. Heart rate 96 bpm. Lungs reveal bilateral rhonchi. No wheezes or crackles. Breath sounds equal. Tenderness on palpation to the left chest area. Abdomen soft bowel sounds are heard. No masses or tenderness. Extremities are intact. No cyanosis clubbing or edema. Skin is without rash or lesion. Neurologic examination is brief but nonfocal. Results - Laboratory Findings CBC and BMP: 07/29/23 05:45 07/29/23 05:45 PT/INR, D-dimer PT 13.7 sec (9.9-11.9) H 07/29/23 05:45 INR 1.29 sec (0.93-1.11) H 07/29/23 05:45 Abnormal lab findings: Abnormal Labs 07/28/23 07/28/23 07/29/23 15:22 15:22 05:45 RBC 4.11 L Hgb 12.7 L Hct 37.3 L RDW 14.7 H Lymphocytes # 0.6 L 0.83 L Eosinophils # 0.02 L PT INR Sodium 131 L Creatinine 0.63 L BUN/Creatinine Ratio Glucose 110 H Calcium AST 148 H ALT 56 H Albumin 3.2 L Globulin Albumin/Globulin Ratio 07/29/23 07/29/23 05:45 05:45 RBC Hgb Hct RDW Lymphocytes # Eosinophils # PT 13.7 H INR 1.29 H Sodium 133 L Creatinine BUN/Creatinine Ratio 23.43 H Glucose 111 H Calcium 8.2 L AST 150 H ALT 56 H Albumin 3.0 L Globulin 3.4 H Albumin/Globulin Ratio 0.88 L - Diagnostic Findings Chest x-ray: image reviewed CT scan - chest: image reviewed Assessment and Plan Assessment: Status post fall, with multiple fractures including fractures of T12, multiple left-sided rib fractures, and transverse fractures of L4 and L5. History of tobacco use, and possible underlying COPD. No other significant medical issues, according to the patient. Plan: Plan dated July 29, 2023. The patient is seen and evaluated. We add some oxygen to his regimen, 2 L. In addition, we added some updrafts to his regimen. Also, we recommend deep breathing, coughing, clearing of secretions, hourly use of the incentive spirometer, and adequate pain control. Additional recommendations and suggestions are forthcoming. Labs, x-rays, and medications are reviewed. Prognosis is guarded. The patient is counseled about the importance of smoking cessation. Time with Patient: Greater than 30
[2023-07-29] MEDS: HEPARIN SODIUM,PORCINE 5,000 UNIT/ML 1 ML VIAL SQ SCH (14:22)
--- NOTE | 2023-07-29 15:25 | P.PN ---
Progress Note - Text Progress Note Date: 07/29/23 Patient seen and examined, I reviewed the note, discussed the case with the PA first hand and agree with the assessment and plan of SABIHA Bryant. Please see my notes below for any additional recommendations. Spine Surgery Clinical and Risk Review MAX SIN is a 58 YO MALE presenting for evaluation of mid and low back pain after fall down stairs. It was my pleasure to have seen and examined MAX SIN . In our visit today we have had a chance to go over subjective complaints, physical examination findings and treatments including the natural course history without intervention and various interventional options. The patients imaging demonstrates T12 unstable burst fracture with posterior element involvement and moderate stenosis due to retropulsion and kyphosis. On physical exam, MAX SIN demonstrates severe low and mid/low back pain, inability to ambulate due to pain as well as increased paresthesias in thighs. No bowel or bladder issues. 4+ to 5/5 all LE and UE. TTp midline T and L spine. NO C spine TTP. I have explained to the patient that as their condition progresses it will cause further neurological deficits and eventual paralysis. Based on the patients imaging, physical exam, and the rapid progression and disabling nature of their symptoms, at this time I recommend surgery in the form or a: T12 ORIF with stabilization. I discussed the risk and benefits of this procedure at length with MAX SIN . The patient agreed to considered pursuing the procedure abovementioned. Prior to surgery, she should follow up with her PCP (Cardio, ID, IM etc) for clearance. Questions were invited and answered, and the patient wishes to proceed as outlined below. Currently, I am recommendin. OPEN TREATMENT T12 FRACTURE WITH T11-L1 STABILIZATION 2. Follow up with PCP for surgical clearance 3. Review of surgical risks and benefits as well as an educational packet on the proposed surgical procedure. Risks: All surgical procedures come with inherent risks, including those related to positioning, anesthesia, intraoperative findings, and postoperative complications. It is important to understand that surgery does not come with any guarantee of a successful outcome as complications and adverse events are always possible. The patient was given a handout in office today discussing the surgical procedure and risks associated with the intervention, both of which were discussed with the patient. These risks include but are not limited to the following: * Experiencing same, different or even worse symptoms in back, neck, arms, or legs compared to before surgery. * Requiring further surgery or other forms of treatment presently or at some time in the future at same or other levels of the intended spine surgery. * On an extreme but fortunately relatively rare basis severe complication such as blindness, stroke, heart attack, temporary and/or permanent nerve injury, paralysis, coma, or may occur, sometimes without known explanation. * Surgical complications may include but are not limited to risk of infection, fluid accumulation in the surgical dissection site, including a seroma or hematoma, that requires additional surgery, wound drainage, bleeding, new numbness or weakness, vision changes/loss, spinal fluid leakage, non-healing and/or infected incision, headaches, difficulty or inability to swallow, hoarseness, hemopneumothorax, pneumothorax, impotence, retrograde ejaculation, vaginal dryness; injury to nerves, spinal cord, blood vessels, lymphatics or other vital organs (i.e., bowel injury, injury to the great vessels); heterotopic bone formation; complications related to the hardware such as screws, rods, cages including misplaced hardware, device failure, instrumentation at the wrong spine level, hardware fracture/breakage, or hardware loosening; vertebral failure of the spinal column above or below the newly placed hardware; retained surgical instrumentations or devices and the need for further surgery. * Medical risks of the planned spine surgery include but are not limited to generalized Infections to the whole body or local areas outside of the surgical site (sepsis), heart attack, bleeding, anaphylaxis, meningitis, seizure, epilepsy, hearing loss, burn pineda, laceration of the head or other areas of the body, bruising, hypersensitivity of the skin, bladder over distension; allergic reaction; shoulder injury related to positioning; fat, blood and air clots to other areas of the body like heart, lungs, brain; failure of internal organs such as lungs, kidneys, liver and excessive bleeding. If blood transfusions are necessary, note that transfusions may cause intolerance reactions such as anaphylaxis or other complex reactions. * Despite best efforts, the results of spine surgery might not heal in terms of bone, soft tissues such as skin, fascia, ligaments, and joints. Additionally, in order to achieve best possible results, spine surgery may be carried out beyond the initially planned levels and involve decompression, fusion including insertion of hardware at levels other than the original intended area of surgical interest change some portions of the procedure in order to ensure the best possible outcomes. * With spine surgery and spinal fusion, there are different off label uses of instrumentation (devices, implants and hardware) as well as biological substances (bone morphogenic proteins, demineralized bone matrix) as well as using extra bone from allograft sources (i.e. cadaver bone) or autograft (iliac crest bone, ribs, or the spine itself). The patient has been given information about these practices and their inherent risks and benefits. The patient has had a chance to review all the listed information, has been given print outs detailing this information, and has had all his/her questions answered to their satisfaction. It was my pleasure to have seen and examined MAX SIN . In our visit today we have had a chance to go over my understanding of our patient's current condition, the natural course history without intervention and various interventional options. Questions were invited and answered, and the patient wishes to proceed as outlined above. I have seen and examined the patient for 25 minutes and we have spent more than 50% of the time in repeat and detailed counseling about the patient's condition, its natural course history with out and as much as can be predicted with surgery and re-review of various surgical treatment options. In conclusion, [MAX LUUCRICKET and requested we proceed with the above suggested surgery and are willing to accept risks and limitations of the suggested surgery as nature of the disease process and our best attempts at treatment for the condition. Thank you again for allowing us to be part of your patient's care. Please don't hesitate to contact me if you have any further questions. Signed and authenticated by: Ariel Garcia [facility] [address] [address]
[2023-07-29] MEDS: ACETAMINOPHEN TAB 325 MG TAB PO PRN (15:28)
--- NOTE | 2023-07-29 16:23 | P.PN ---
Subjective Progress Note Date: 07/29/23 (delayed charting seen at 0945) Patient is a 58-year-old male with history of psoriasis, GERD, and chronic knee pain who presented to the emergency department with worsening back pain. Patient had a significant fall down the stairs about 1 week prior without loss of consciousness. He was initially seen at an outside hospital and was found to have rib fractures and was sent home. The ER here he underwent an extensive evaluation which demonstrated left posterior rib fractures 5 through 12, T12 burst fracture, and circumferential esophageal thickening. Patient was subsequently admitted to trauma services. We were consulted. Patient seen and examined at bedside. He denies any chest pain, shortness of breath, nausea, vomiting. He is having significant back pain along with numbness, tingling, and weakness in his lower extremities. He denies any loss of bowel or bladder function though he has not had a bowel movement in several days. Vital signs reviewed General: Ill-appearing, moderate distress, appears younger than stated age Cardiovascular: S1S2 reg, no murmur Lungs: Decreased breath sounds bilateral, no rhonchi, no rales, no accessory muscle use Abdominal: Soft, nontender to palpation, no guarding Ext: No gross muscle atrophy, no edema b/l lower extremities, no contractures Neuro: CN II-XI grossly intact,, limited movement of bilateral lower extremity secondary to pain, moving upper extremities without difficulty Psych: Alert, oriented, appropriate affect Assessment/Plan: 58-year-old male with T12 unstable burst fracture with moderate stenosis due to retropulsion from mechanical fall downstairs Left ribs 5 through 12, posterior fracture L4-5 right transverse process fractures Intractable pain Pulmonary contusion Hyponatremia -Pain management recommendations reviewed: Dilaudid, gabapentin And baclofen. No epidural due to proposed surgery - Recommendations reviewed: Consult pain management, pulmonary -Pulmonary recommendations: Add updrafts, pulmonary hygiene -Check echocardiogram to rule out pulmonary contusion given location of rib fractures -Telemetry monitoring - LR at 75 cc/hr with dereased oral intake and hyponatremia Pyrexia - likely related to atelectasis, but now 103 - check stat urinalysis, chest x-ray, Cepheid 4 Plex, creatinine kinase, blood cultures -Continue to follow fever profile Alcohol misuse Transaminitis, coagulopathy -Patient drinks 1/5 2 to 4 days/week -CIWA protocol with Ativan dosing per CIWA score, thiamine 100 mg daily, folic acid 1 mg daily. Monitor for significant alcohol withdrawal -Continue to follow liver enzymes. Records reviewed from [facility] and it appears his liver enzymes are stable at this time. GERD Esophageal circumferential mural thickening -Outpatient EGD after discharge Imaging: CT chest reviewed by myself. Appears that there could be left lower lobe atelectasis versus pulmonary contusion Data Review: Labs reviewed from today include CBC, coags, and CMP which are remarkable for hemoglobin 12.7, INR 1.29, sodium 133, AST 150, ALT 56 DVT prophylaxis: Heparin Thank you for allowing us to participate in the care of this pleasant patient. Do not hesitate to contact us with questions. Someone can be reached from the [facility] hospitalist group all hours of the day at [phone] or via indidebt. This dictation was prepared using [employer] voice recognition software. Though every attempt is made to correct errors during dictation some may still exist. Objective - Vital Signs Vital signs: Vital Signs Temp 103.0 F H 07/29/23 14:26 Pulse 105 H 07/29/23 14:26 Resp 18 07/29/23 14:26 BP 160/73 07/29/23 14:26 Pulse Ox 90 L 07/29/23 14:26 FiO2 Intake & Output 07/28/23 07/29/23 07/29/23 18:59 06:59 18:59 Output Total 600 Balance -600 Weight 99.79 kg 99.79 kg 99.79 kg Output: Urine 600 Other: Voiding Method Urinal - Labs CBC & Chem 7: 07/29/23 05:45 07/29/23 05:45 Labs: Abnormal Lab Results - Last 24 Hours (Table) 07/29/23 07/29/23 07/29/23 Range/Units 05:45 05:45 05:45 RBC 4.11 L (4.40-5.60) X 10*6/uL Hgb 12.7 L (13.0-17.0) g/dL Hct 37.3 L (39.6-50.0) % RDW 14.7 H (11.5-14.5) % Lymphocytes # 0.83 L (0.90-5.00) X 10*3/uL Eosinophils # 0.02 L (0.04-0.35) X 10*3/uL PT 13.7 H (9.9-11.9) sec INR 1.29 H (0.93-1.11) sec Sodium 133 L (135-145) mmol/L BUN/Creatinine Ratio 23.43 H (12.00-20.00) Ratio Glucose 111 H (70-110) mg/dL Calcium 8.2 L (8.7-10.3) mg/dL AST 150 H (14-35) U/L ALT 56 H (10-49) U/L Albumin 3.0 L (3.8-4.9) g/dL Globulin 3.4 H (1.6-3.3) g/dL Albumin/Globulin Ratio 0.88 L (1.60-3.17) Ratio
--- NOTE | 2023-07-29 16:59 | XR ---
EXAMINATION TYPE: XR chest 1V portable DATE OF EXAM: 07/29/2023 4:51 PM CLINICAL INDICATION:Male, 58 years old with history of fever; [facility] COMPARISON: Chest radiographs from 07/26/2023. TECHNIQUE: XR chest 1V portable Frontal view of the chest. FINDINGS: Lungs/Pleura: Low lung volumes are present. There is no evidence of pleural effusion, focal consolida tion, or pneumothorax. Pulmonary vascularity: Unremarkable. Heart/mediastinum: Cardiomediastinal silhouette is unremarkable. Musculoskeletal: No acute osseous pathology. IMPRESSION: Low lung volumes with a generalized hazy appearance which could represent atelectasis versus pulmonar y edema versus airspace disease.
[2023-07-29] MEDS: LACTATED RINGERS 1,000 ML IV SCH (17:34)
[2023-07-29 20:17] LABS: Appearance,Urine Clear (Clear); Bilirubin,Urine Negative (Negative); Blood,Urine Negative (Negative); Color,Urine Yellow; Glucose,Urine (UA) Negative (Negative); Ketones,Urine Negative (Negative); Leukocyte Esterase,Urine Negative (Negative); Nitrite,Urine Negative (Negative); Protein,Urine Negative (Negative); Specific Gravity,Urine 1.024 (1.001-1.035); Urobilinogen,Urine <2.0 mg/dL (<2.0)
[2023-07-29] MEDS: OSELTAMIVIR 75 MG CAP PO SCH (21:09)
[2023-07-30] MEDS: THIAMINE 100 MG TAB PO SCH (10:59)
[2023-07-30 11:10] LABS: HCT 41.5 % (39.0-53.0); HGB 13.7 gm/dL (13.0-17.5); MCH 31.4 pg (25.0-35.0); MCHC 33.1 g/dL (31.0-37.0); Mean Platelet Volume 7.3; Platelet Count 123 k/uL (150-450); RBC 4.37 m/uL (4.30-5.90); RDW 14.4 % (11.5-15.5); WBC 5.1 k/uL (3.8-10.6)
[2023-07-30 11:19] LABS: INR 1.2 (<1.2); Partial Thromboplastin Time 33.9 sec (22.0-30.0); Prothrombin Time 13.2 sec (10.0-12.5)
[2023-07-30 11:24] LABS: AST 196 U/L (17-59); African American GFR (CKD) >90 (>60 ml/min/1.73 sqM); Albumin 2.8 g/dL (3.5-5.0); Albumin/Globulin Ratio 0.8; Anion Gap 1 mmol/L; Blood Urea Nitrogen 14 mg/dL (9-20); Calcium 8.1 mg/dL (8.4-10.2); Carbon Dioxide 26 mmol/L (22-30); Chloride 100 mmol/L (98-107); Globulin 3.7 g/dL; Glucose 87 mg/dL (74-99); Non-African American GFR(CKD) >90 (>60 ml/min/1.73 sqM); Potassium 4.3 mmol/L (3.5-5.1); Sodium 127 mmol/L (137-145); Total Bilirubin 0.8 mg/dL (0.2-1.3); Total Protein 6.5 g/dL (6.3-8.2)
[2023-07-30 11:25] LABS: ALT 58 U/L (4-49); Alkaline Phosphatase 87 U/L (38-126)
[2023-07-30] MEDS: LACTATED RINGERS 1,000 ML IV ONE ×2 (11:34)
[2023-07-30] MEDS: THROMBIN (BOVINE) 5,000 UNIT VIAL TOPICAL ONE (12:28)
[2023-07-30] MEDS: LIDOCAINE 2% INJ 20 MG/ML SQ ONE ×2 (12:28)
[2023-07-30] MEDS: GELATIN SPONGE,ABSORB (LARGE) 1 EACH SPONGE TOPICAL ONE (12:28)
[2023-07-30] MEDS: BUPIVACAINE (PF) 0.5% 30 ML VIAL SQ ONE ×2 (12:28)
--- NOTE | 2023-07-30 12:41 | P.PN ---
Subjective Progress Note Date: 07/30/23 58-year-old male without any past medical history, who apparently was at [facility], after falling, 6 days ago. There he was evaluated, and had some x-rays done, which determined that he had some rib fractures on the left side. He apparently hit his head, and did lose consciousness. Apparently he did not have a CAT scan or x-rays of the spine, at the outside facility. The patient presents to the emergency room, complaining of pain in the left side of his chest, from his rib fractures, and some back pain as well. In addition, he cannot take a deep breath. The patient was found to have significant rib fractures on the left, as well as some fractures of the lower thoracic spine, and lumbar spine. Laboratory data includes a white count 4.55, hemoglobin 12.7, hematocrit 37.3, and platelet count 144,000. PT is 13.7 with an INR 1.29. Sodium 133, potassium 4.2, chlorides 100, CO2 26, BUN 16, creatinine 0.7. Close is 111. Calcium 8.2. AST 150. ALT 56. X-rays of the head and cervical spine were negative. Chest CT shows numerous left-sided rib fractures, a compression deformity of T12, and a trace left-sided pleural effusion. There is also cirrhosis and splenomegaly, and hiatal hernia. In addition, there were posterior rib fractures from T4-T12. As well as L4 transverse process nondisplaced fracture, and an L5 transverse process showing a displaced fracture. The patient is seen today July 30, 2023 in follow-up on the regular medical floor. He is currently resting fairly comfortably in bed. He is maintaining O2 saturations in the 90s on 2 L/min per nasal cannula. He has normal saying at 125 MLS per hour. He is now tested positive for influenza A. White count 5.1. Hemoglobin 13.7. Platelets 123. INR 1.2. Sodium 127. Potassium 4.3. Bicarb 26. BUN 14. Creatinine 0.53. AST 196. ALT 58. He remains on bronchodilators. Heparin for DVT prophylaxis. Remains on the CIWA protocol. Has been initiated on Tamiflu. Objective - Vital Signs Vital signs: Vital Signs Temp 99.1 F 07/30/23 07:55 Pulse 100 07/30/23 08:15 Resp 19 07/30/23 07:55 BP 139/78 07/30/23 07:55 Pulse Ox 90 L 07/30/23 08:04 FiO2 21 07/30/23 08:04 Intake & Output 07/29/23 07/30/23 07/30/23 18:59 06:59 18:59 Intake Total 1000 Output Total 200 Balance -200 1000 Weight 99.79 kg Intake: IV 1000 Output: Urine 200 Other: Voiding Method Urinal Urinal # Voids 2 - Exam GENERAL EXAM: Alert, 8-year-old male, on 2 L nasal cannula, fairly comfortable in no apparent distress. HEAD: Normocephalic. EYES: Normal reaction of pupils, equal size. NOSE: Clear with pink turbinates. THROAT: No erythema or exudates. NECK: No masses, no JVD. CHEST: No chest wall deformity. LUNGS: Equal air entry with faint crackles in the posterior bases. CVS: S1 and S2 normal with no audible murmur, regular rhythm. ABDOMEN: No hepatosplenomegaly, normal bowel sounds, no guarding or rigidity. SPINE: No scoliosis or deformity SKIN: No rashes CENTRAL NERVOUS SYSTEM: No focal deficits, tone is normal in all 4 extremities. EXTREMITIES: There is no peripheral edema. No clubbing, no cyanosis. Peripheral pulses are intact. - Labs CBC & Chem 7: 07/30/23 10:29 07/30/23 10:29 Labs: Abnormal Lab Results - Last 24 Hours (Table) 07/29/23 07/29/23 07/30/23 Range/Units 16:16 16:27 10:29 Plt Count 123 L (150-450) k/uL PT (10.0-12.5) sec INR (<1.2) APTT (22.0-30.0) sec Sodium (137-145) mmol/L Creatinine (0.66-1.25) mg/dL Calcium (8.4-10.2) mg/dL AST (17-59) U/L ALT (4-49) U/L Creatine Kinase 54 L (55-170) U/L Albumin (3.5-5.0) g/dL Influenza Type A (PCR) Detected A (Not Detectd) 07/30/23 07/30/23 Range/Units 10:29 10:29 Plt Count (150-450) k/uL PT 13.2 H (10.0-12.5) sec INR 1.2 H (<1.2) APTT 33.9 H (22.0-30.0) sec Sodium 127 L (137-145) mmol/L Creatinine 0.53 L (0.66-1.25) mg/dL Calcium 8.1 L (8.4-10.2) mg/dL AST 196 H (17-59) U/L ALT 58 H (4-49) U/L Creatine Kinase (55-170) U/L Albumin 2.8 L (3.5-5.0) g/dL Influenza Type A (PCR) (Not Detectd) Assessment and Plan Assessment: Status post fall, with multiple fractures including fractures of T12 with retropulsion, multiple left-sided rib fractures, and transverse fractures of L4 and L5. Plan is for open reduction internal fixation of T12 with T11-L1 stabili zation for T12 fracture History of tobacco use, and possible underlying COPD. History of alcohol use No other significant medical issues, according to the patient. Plan: The patient was seen and evaluated Labs and medications reviewed Chest x-ray reviewed Encourage increased use the incentive spirometer and cough and deep breathing exercises Plan is for ORIF of compression fracture with retropulsion of T12 today Titrate the FiO2 as tolerated We will continue to follow I have personally seen and examined the patient, performed the documentation and the assessment and plan as written. Number of minutes spent on the visit: 10.
--- NOTE | 2023-07-30 13:25 | CA ---
Transthoracic Echo Report Name: Wong Vazquez Age: 58 Gender: M : 1965 Exam Date: 07/29/2023 15:48 Exam Location: [facility] Ht (in): 74 Wt (lb): 220 Ordering Physician: Lindsey Delacruz DO Attending/Referring Phys: [id number], [employer] Eric Calhoun RDCS Procedure CPT: Indications: cardiac contusion Cardiac Hx: Technical Quality: Contrast 1: Total Dose (mL): Contrast 2: Total Dose (mL): MEASUREMENTS (Male / Female) Normal Values 2D ECHO LV Diastolic Diameter PLAX 5.9 cm 4.2 - 5.9 / 3.9 - 5.3 cm LV Systolic Diameter PLAX 4.2 cm IVS Diastolic Thickness 1.2 cm 0.6 - 1.0 / 0.6 - 0.9 cm LVPW Diastolic Thickness 0.7 cm 0.6 - 1.0 / 0.6 - 0.9 cm LV Relative Wall Thickness 0.3 LVOT Diameter 2.4 cm Aortic Root Diameter 3.7 cm LA Systolic Diameter LX 4.9 cm 3.0 - 4.0 / 2.7 - 3.8 cm DOPPLER AV Peak Velocity 128.0 cm/s AV Peak Gradient 6.5 mmHg AV Mean Velocity 96.7 cm/s AV Mean Gradient 4.1 mmHg AV Velocity Time Integral 19.6 cm LVOT Peak Velocity 91.7 cm/s LVOT Peak Gradient 3.4 mmHg LVOT Velocity Time Integral 15.2 cm LVOT Stroke Volume 71.5 cm??? LVOT Stroke Volume Index 31.6 ml/m??? AV Area Cont Eq vti 3.6 cm??? AV Area Cont Eq pk 3.4 cm??? MV Area PHT 5.1 cm??? Mitral E Point Velocity 111.8 cm/s Mitral A Point Velocity 72.3 cm/s Mitral E to A Ratio 1.5 MV Deceleration Time 147.8 ms PV Peak Velocity 91.0 cm/s PV Peak Gradient 3.3 mmHg FINDINGS Left Ventricle Mildly increased septal wall thickness. Left ventricular ejection fraction is estimated at 55-60 %. No obvious regional wall motion abnormalities. Right Ventricle Normal right ventricular size. Right ventricular systolic pressure within normal limits. Right Atrium Normal right atrial size. Left Atrium Moderately increased left atrial diameter. Mitral Valve Trace mitral regurgitation. Aortic Valve Trileaflet aortic valve. Tricuspid Valve Trace tricuspid regurgitation. Pulmonic Valve No pulmonic regurgitation. Pericardium No pericardial effusion. Aorta Normal size aortic root. CONCLUSIONS LVH with preserved systolic function Previewed by: Dr. Pedro Billy MD (Electronically Signed) Final Date: 30 July 2023 13:24
[2023-07-30] MEDS ORDERED: MAGNESIUM HYDROXIDE 2,400 MG/30 ML CUP PO PRN (13:41)
[2023-07-30] MEDS ORDERED: HYDROmorphone 0.5 MG/0.5 ML SYRINGE IVP PRN (13:41)
[2023-07-30] MEDS ORDERED: HYDROcodone/APAP 5-325MG 1 EACH TAB PO PRN (13:41)
[2023-07-30] MEDS ORDERED: SENNOSIDES-DOCUSATE SODIUM 1 EACH TAB PO PRN (13:41)
--- NOTE | 2023-07-30 13:55 | FL ---
EXAMINATION TYPE: FL guidance operating room, XR thoracic spine 2V Intraoperative/procedural fluorosc opic services were provided. Total fluoroscopy time is 1 minute 17 seconds with a total of 7 submitte d images to PACS. Please see the operative/procedural note for further details. DAP: [id number]
[2023-07-30] MEDS: HYDROmorphone 0.5 MG/0.5 ML SYRINGE IVP ONE (14:21)
--- NOTE | 2023-07-30 15:09 | P.PN ---
Subjective Progress Note Date: 07/30/23 (delayed charting seen at 1030) Patient is a 58-year-old male with history of psoriasis, GERD, and chronic knee pain who presented to the emergency department with worsening back pain. Patient had a significant fall down the stairs about 1 week prior without loss of consciousness. He was initially seen at an outside hospital and was found to have rib fractures and was sent home. The ER here he underwent an extensive evaluation which demonstrated left posterior rib fractures 5 through 12, T12 burst fracture, and circumferential esophageal thickening. Patient was subsequently admitted to trauma services. We were consulted. Patient seen and examined at bedside. He continues to complain of pain especially in his left ribs worse with deep inspiration. We discussed the importance of using his IS. He is overall feeling very fatigued and tired. Vital signs reviewed General: Ill-appearing, moderate distress, appears younger than stated age Cardiovascular: S1S2 reg, no murmur Lungs: Decreased breath sounds bilateral, no rhonchi, no rales, no accessory muscle use Abdominal: Soft, nontender to palpation, no guarding Ext: No gross muscle atrophy, no edema b/l lower extremities, no contractures Neuro: CN II-XI grossly intact,, limited movement of bilateral lower extremity secondary to pain, moving upper extremities without difficulty Psych: Alert, oriented, appropriate affect Assessment/Plan: 58-year-old male with T12 unstable burst fracture with moderate stenosis due to retropulsion from mechanical fall downstairs Left ribs 5 through 12, posterior fracture L4-5 right transverse process fractures Intractable pain Pulmonary contusion Hyponatremia-- hypovolemic vs related to liver disease Thrombocytopenia - Plan is for OR today to surgical fixation of T12 fracture -Case discussed with anesthesia. Notified of patient's positive influenza A status. - Await further general surgery recs -Pulmonary recommendations: agree with tamiflu -Telemetry monitoring - LR at 125 ml/hr due to poor oral intake and hyponatremia - pulmonary hygiene -Dilaudid 0.5 to 1 mg IV every 4 hours as needed for pain, Flexeril 5 mg oral 3 times daily as needed for muscle spasms, [place] and 03/08/2025 depending on pain scale every 6 hours. Suggest starting gabapentin 100 mg 3 times daily when patient is postoperative and able to eat again. Influenza A - repeat CXR in AM - Tamiflu 75 mg BID dose # 2/10 Alcohol misuse Transaminitis, coagulopathy -Patient drinks 1/5 2 to 4 days/week -CIWA protocol with Ativan dosing per CIWA score, thiamine 100 mg daily, folic a jacki 1 mg daily. Monitor for significant alcohol withdrawal -Continue to follow liver enzymes. Records reviewed from [facility] and it appears his liver enzymes are stable at this time. GERD Esophageal circumferential mural thickening -Outpatient EGD after discharge Imaging: None new Data Review: Labs reviewed from today include basic metabolic profile, coags, and CMP which are remarkable for platelets of 123, sodium 127, AST 196, ALT 58 DVT prophylaxis: Heparin Thank you for allowing us to participate in the care of this pleasant patient. Do not hesitate to contact us with questions. Someone can be reached from the [facility] hospitalist group all hours of the day at [phone] or via [employer]. This dictation was prepared using [employer] voice recognition software. Though every attempt is made to correct errors during dictation some may still exist. Objective - Vital Signs Vital signs: Vital Signs Temp 98.6 F 07/30/23 13:42 Pulse 95 07/30/23 14:50 Resp 18 07/30/23 14:50 BP 127/65 07/30/23 14:50 Pulse Ox 95 07/30/23 14:50 FiO2 21 07/30/23 08:04 Intake & Output 07/29/23 07/30/23 07/30/23 18:59 06:59 18:59 Intake Total 2600 Output Total 200 550 Balance -200 2050 Weight 99.79 kg Intake: IV 2600 Output: Urine 200 400 Estimated Blood Loss 150 Other: Voiding Method Urinal Urinal # Voids 2 - Labs CBC & Chem 7: 07/30/23 10:29 07/30/23 10:29 Labs: Abnormal Lab Results - Last 24 Hours (Table) 07/29/23 07/29/23 07/30/23 Range/Units 16:16 16:27 10:29 Plt Count 123 L (150-450) k/uL PT (10.0-12.5) sec INR (<1.2) APTT (22.0-30.0) sec Sodium (137-145) mmol/L Creatinine (0.66-1.25) mg/dL Calcium (8.4-10.2) mg/dL AST (17-59) U/L ALT (4-49) U/L Creatine Kinase 54 L (55-170) U/L Albumin (3.5-5.0) g/dL Influenza Type A (PCR) Detected A (Not Detectd) 07/30/23 07/30/23 Range/Units 10:29 10:29 Plt Count (150-450) k/uL PT 13.2 H (10.0-12.5) sec INR 1.2 H (<1.2) APTT 33.9 H (22.0-30.0) sec Sodium 127 L (137-145) mmol/L Creatinine 0.53 L (0.66-1.25) mg/dL Calcium 8.1 L (8.4-10.2) mg/dL AST 196 H (17-59) U/L ALT 58 H (4-49) U/L Creatine Kinase (55-170) U/L Albumin 2.8 L (3.5-5.0) g/dL Influenza Type A (PCR) (Not Detectd)
--- NOTE | 2023-07-30 16:00 | P.PN ---
Subjective Progress Note Date: 07/30/23 No acute events overnight General-NAD CVS-RRR Lungs-NLB Abdomen-soft, NTND ASSESSMENT: 1. Trauma with fall downstairs and prior to that being hit in the back 2. Multiple left-sided rib fractures 3. Compression deformity superior endplate of T12 vertebral body with retropulsed fragments causing moderate central canal stenosis and possible compression of the cord noted on CT scan 4. Shortness of breath and cough 5. Lower esophageal circumferential mural thickening noted on CT scan PLAN: -Surgical intervention planned per orthopedic spinal service for T 12 compression fracture -Continue supportive care -Consults placed for pulmonary service, medical service and pain management -Continue pain management -Encourage patient to use incentive spirometer -Agree with nebulizer treatments -Continue regular diet -GI prophylaxis Protonix -DVT prophylaxis subcu heparin Objective - Vital Signs Vital signs: Vital Signs Temp 98.6 F 07/30/23 13:42 Pulse 95 07/30/23 14:50 Resp 18 07/30/23 14:50 BP 127/65 07/30/23 14:50 Pulse Ox 95 07/30/23 14:50 FiO2 21 07/30/23 08:04 Intake & Output 07/29/23 07/30/23 07/30/23 18:59 06:59 18:59 Intake Total 2600 Output Total 200 550 Balance -200 2050 Weight 99.79 kg Intake: IV 2600 Output: Urine 200 400 Estimated Blood Loss 150 Other: Voiding Method Urinal Urinal # Voids 2 - Labs CBC & Chem 7: 07/30/23 10:29 07/30/23 10:29 Labs: Abnormal Lab Results - Last 24 Hours (Table) 07/29/23 07/29/23 07/30/23 Range/Units 16:16 16:27 10:29 Plt Count 123 L (150-450) k/uL PT (10.0-12.5) sec INR (<1.2) APTT (22.0-30.0) sec Sodium (137-145) mmol/L Creatinine (0.66-1.25) mg/dL Calcium (8.4-10.2) mg/dL AST (17-59) U/L ALT (4-49) U/L Creatine Kinase 54 L (55-170) U/L Albumin (3.5-5.0) g/dL Influenza Type A (PCR) Detected A (Not Detectd) 07/30/23 07/30/23 Range/Units 10:29 10:29 Plt Count (150-450) k/uL PT 13.2 H (10.0-12.5) sec INR 1.2 H (<1.2) APTT 33.9 H (22.0-30.0) sec Sodium 127 L (137-145) mmol/L Creatinine 0.53 L (0.66-1.25) mg/dL Calcium 8.1 L (8.4-10.2) mg/dL AST 196 H (17-59) U/L ALT 58 H (4-49) U/L Creatine Kinase (55-170) U/L Albumin 2.8 L (3.5-5.0) g/dL Influenza Type A (PCR) (Not Detectd)
--- NOTE | 2023-07-30 18:25 | CT ---
EXAMINATION TYPE: CT thor lumbar spine wo con CT DLP: 1568.1 mGycm, Automated exposure control for dose reduction was used. DATE OF EXAM: 07/30/2023 6:00 PM CLINICAL INDICATION:Male, 58 years old with history of s/p T11-L1 stabilization for T12 fracture; pos t-op COMPARISON: 07/28/2023. TECHNIQUE: Axial images of the thoracic and lumbar spine were obtained without contrast. Coronal and sagittal reformats were performed. CT Contrast: Contrast used: mL of , none. Oral contrast used: none. FINDINGS: Postsurgical changes to the spine. With fixation hardware at T11 and L1. Vertebral plasty cement is s een within the T12 vertebrae. Skin sanjay are seen in the posterior soft tissues. Subcutaneous changes foci of gas compatible with recent surgery. Multilevel degeneration changes throughout the spine. There remains fracture lines through the T12 vertebrae which extends to the posterior elements best a ppreciated on series 201 image 102. No new fractures are identified. Multiple rib fractures are ident ified predominantly in the left with atelectasis changes in the lungs bilaterally IMPRESSION: Postsurgical changes no evidence for acute postop complication.
[2023-07-30 18:36] LABS: African American GFR (CKD) >90 (>60 ml/min/1.73 sqM); Anion Gap 2 mmol/L; Blood Urea Nitrogen 13 mg/dL (9-20); Carbon Dioxide 25 mmol/L (22-30); Chloride 101 mmol/L (98-107); Glucose 235 mg/dL (74-99); Non-African American GFR(CKD) >90 (>60 ml/min/1.73 sqM); Potassium 4.8 mmol/L (3.5-5.1); Sodium 128 mmol/L (137-145)
[2023-07-30] MEDS: CYCLOBENZAPRINE 5 MG TAB PO PRN (20:31)
[2023-07-30] MEDS: LACTATED RINGERS 1,000 ML IV SCH (20:49)
[2023-07-30] MEDS: HYDROcodone/APAP 10-325MG 1 EACH TAB PO PRN (23:32)
[2023-07-31 07:58] LABS: Basophils % (A) 0 %; Eosinophils % (A) 0 %; HCT 34.6 % (39.0-53.0); HGB 11.6 gm/dL (13.0-17.5); Lymphocytes # (A) 0.6 k/uL (1.0-4.8); Lymphocytes % (A) 8 %; MCH 31.2 pg (25.0-35.0); MCHC 33.5 g/dL (31.0-37.0); Mean Platelet Volume 7.6; Monocytes # (A) 0.4 k/uL (0-1.0); Monocytes % (A) 5 %; Neutrophils % (A) 85 %; Platelet Count 112 k/uL (150-450); RBC 3.72 m/uL (4.30-5.90); RDW 14.6 % (11.5-15.5)
[2023-07-31 08:09] LABS: African American GFR (CKD) >90 (>60 ml/min/1.73 sqM); Anion Gap 2 mmol/L; Blood Urea Nitrogen 11 mg/dL (9-20); Carbon Dioxide 28 mmol/L (22-30); Chloride 102 mmol/L (98-107); Glucose 150 mg/dL (74-99); Non-African American GFR(CKD) >90 (>60 ml/min/1.73 sqM); Potassium 4.5 mmol/L (3.5-5.1); Sodium 132 mmol/L (137-145)
--- NOTE | 2023-07-31 09:54 | P.PN ---
Subjective Progress Note Date: 07/31/23 Principal diagnosis: T12 burst fracture; back pain; posterior rib fractures from 6 through 12; L4-L5 stenosis Patient was seen at bedside this morning lying semirecumbent position with dressing present over spine. Patient says Tripp was removed this morning and he has urinated couple times since Tripp was removed. Patient says she has been up walking since surgery yesterday. Patient is hoping did receive TLSO brace today. Patient says he is having pain mostly localized to the back at this time. Patient still is having some rib cage pain. Patient is looking forward to working with therapy today. Patient denies fever, shortness of breath, nausea, vomiting, change, loss of bowel/bladder control. Objective - Vital Signs Vital signs: Vital Signs Temp 97.7 F 07/31/23 07:50 Pulse 96 07/31/23 09:06 Resp 17 07/31/23 07:50 BP 152/88 07/31/23 07:50 Pulse Ox 93 L 07/31/23 08:59 FiO2 21 07/30/23 08:04 Intake & Output 07/30/23 07/31/23 07/31/23 18:59 06:59 18:59 Intake Total 2600 Output Total 1850 Balance 750 Intake: IV 2600 Output: Urine 1700 Estimated Blood Loss 150 Other: Voiding Method Urinal Indwelling Catheter - Exam Inspection: Dressing is previously clean, dry, intact. Negative for any active drainage. Some swelling present. Sensation: Equal, symmetric, bilaterally intact throughout the upper and lower extremities. Palpation: There is moderate tenderness to palpation diffusely throughout the lower thoracic and upper lumbar spine. Moderate tenderness to palpation over the lower lumbar spine and midline there is generalized paravertebral tenderness to palpation throughout the lower thoracic and lumbar spines. Significant tenderness patient over the posterior rib cage. Nontender to palpation throughout rest exam. Range of motion: Patient does have some limited range of motion in the bilateral lower extremities and hip flexion and extension secondary to referred pain to the back. Patient has full range of motion throughout bilateral upper extremity is on exam Motor: 4/5 in all major motor groups in bilateral lower extremity. 5/5 in all major motor groups in bilateral upper extremity. Neurovascular: Radial pulse intact, 2+ bilaterally. Cap refill under 3 seconds in digits in upper extremities. Special tests: Negative Homans bilaterally. Negative Paulette bilaterally. Negative clonus bilaterally. - Labs CBC & Chem 7: 07/31/23 07:02 07/31/23 07:02 Labs: Abnormal Lab Results - Last 24 Hours (Table) 07/30/23 07/30/23 07/30/23 Range/Units 10:29 10:29 10:29 RBC (4.30-5.90) m/uL Hgb (13.0-17.5) gm/dL Hct (39.0-53.0) % Plt Count 123 L (150-450) k/uL Lymphocytes # (1.0-4.8) k/uL PT 13.2 H (10.0-12.5) sec INR 1.2 H (<1.2) APTT 33.9 H (22.0-30.0) sec Sodium 127 L (137-145) mmol/L Creatinine 0.53 L (0.66-1.25) mg/dL Glucose (74-99) mg/dL Calcium 8.1 L (8.4-10.2) mg/dL AST 196 H (17-59) U/L ALT 58 H (4-49) U/L Albumin 2.8 L (3.5-5.0) g/dL 07/30/23 07/31/23 07/31/23 Range/Units 18:08 07:02 07:02 RBC 3.72 L (4.30-5.90) m/uL Hgb 11.6 L (13.0-17.5) gm/dL Hct 34.6 L (39.0-53.0) % Plt Count 112 L (150-450) k/uL Lymphocytes # 0.6 L (1.0-4.8) k/uL PT (10.0-12.5) sec INR (<1.2) APTT (22.0-30.0) sec Sodium 128 L 132 L (137-145) mmol/L Creatinine 0.57 L 0.51 L (0.66-1.25) mg/dL Glucose 235 H 150 H (74-99) mg/dL Calcium 8.0 L 8.0 L (8.4-10.2) mg/dL AST (17-59) U/L ALT (4-49) U/L Albumin (3.5-5.0) g/dL Microbiology - Last 24 Hours (Table) 07/29/23 16:30 Blood Culture - Preliminary Blood 07/29/23 16:34 Blood Culture - Preliminary Blood Assessment and Plan Assessment: 1. T12 burst fracture; back pain; posterior rib fractures from 6 through 12; L4-L5 stenosis - Postoperative day 1 status post T12 ORIF stabilization from T11 through L1 Plan: 1. T12 burst fracture; back pain; posterior rib fractures from 6 through 12; L4-L5 stenosis - surgery performed yesterday, 07/30/2023 T12 ORIF stabilization from T11 through L1. Patient stable at bedside this morning. Awaiting arrival of TLSO brace. Dressings appear to be clean, dry, intact at this time. Assess dressings daily. Patient may weight-bear as tolerated with walker and TLSO brace on when up and about. Pain medication as needed. Weight- bear as tolerated with walker and brace. We will continue to follow patient during standard hospital. 2. Appreciate medical management and other specialty recommendations 3. Pain management - Dilaudid; [place]; Flexeril 4. DVT prophylaxis - heparin 5. GI prophylaxis - Protonix; senna; milk of magnesia 6. PT/OT - weightbearing as tied with walker and TLSO brace on while up and about 7. Encourage incentive spirometer use Time with Patient: Less than 30
--- NOTE | 2023-07-31 11:48 | P.PN ---
Subjective Progress Note Date: 07/31/23 58-year-old male without any past medical history, who apparently was at [facility], after falling, 6 days ago. There he was evaluated, and had some x-rays done, which determined that he had some rib fractures on the left side. He apparently hit his head, and did lose consciousness. Apparently he did not have a CAT scan or x-rays of the spine, at the outside facility. The patient presents to the emergency room, complaining of pain in the left side of his chest, from his rib fractures, and some back pain as well. In addition, he cannot take a deep breath. The patient was found to have significant rib fractures on the left, as well as some fractures of the lower thoracic spine, and lumbar spine. Laboratory data includes a white count 4.55, hemoglobin 12.7, hematocrit 37.3, and platelet count 144,000. PT is 13.7 with an INR 1.29. Sodium 133, potassium 4.2, chlorides 100, CO2 26, BUN 16, creatinine 0.7. Close is 111. Calcium 8.2. AST 150. ALT 56. X-rays of the head and cervical spine were negative. Chest CT shows numerous left-sided rib fractures, a compression deformity of T12, and a trace left-sided pleural effusion. There is also cirrhosis and splenomegaly, and hiatal hernia. In addition, there were posterior rib fractures from T4-T12. As well as L4 transverse process nondisplaced fracture, and an L5 transverse process showing a displaced fracture. The patient is seen today July 30, 2023 in follow-up on the regular medical floor. He is currently resting fairly comfortably in bed. He is maintaining O2 saturations in the 90s on 2 L/min per nasal cannula. He has normal saying at 125 MLS per hour. He is now tested positive for influenza A. White count 5.1. Hemoglobin 13.7. Platelets 123. INR 1.2. Sodium 127. Potassium 4.3. Bicarb 26. BUN 14. Creatinine 0.53. AST 196. ALT 58. He remains on bronchodilators. Heparin for DVT prophylaxis. Remains on the CIWA protocol. Has been initiated on Tamiflu. The patient is seen today July 31, 2023 in follow-up on the regular medical floor. He is currently sitting up in bed. Awake and alert in no acute distress. He did undergo surgery yesterday that included ORIF stabilization T11-L1 for his T12 burst fracture. His pain is well-controlled. He denies any worsening shortness of breath, cough or congestion. Continues to maintain O2 saturations in the 90s on room air. Working with the incentive spirometer. Afebrile. Hemodynamically stable. Follow-up CT scan of the spine revealed postsurgical changes and no evidence of acute postop complication. White count 7.0. Hemoglobin 11.6. Platelet count 112. Sodium 132. Potassium 4.5. Bicarb 28. BUN 11. Creatinine 0.51. Glucose 150. He is continued on bronchodilators. Heparin for DVT prophylaxis. Tamiflu for his influenza A infection. Objective - Vital Signs Vital signs: Vital Signs Temp 97.7 F 07/31/23 07:50 Pulse 96 07/31/23 09:06 Resp 17 07/31/23 08:00 BP 152/88 07/31/23 07:50 Pulse Ox 93 L 07/31/23 08:59 FiO2 21 07/30/23 08:04 Intake & Output 07/30/23 07/31/23 07/31/23 18:59 06:59 18:59 Intake Total 2600 Output Total 1850 Balance 750 Intake: IV 2600 Output: Urine 1700 Estimated Blood Loss 150 Other: Voiding Method Urinal Indwelling Catheter Indwelling Catheter - Exam GENERAL EXAM: Alert, 58-year-old male, on room air, comfortable in no apparent distress. HEAD: Normocephalic. EYES: Normal reaction of pupils, equal size. NOSE: Clear with pink turbinates. THROAT: No erythema or exudates. NECK: No masses, no JVD. CHEST: No chest wall deformity. LUNGS: Equal air entry with faint crackles in the posterior bases. CVS: S1 and S2 normal with no audible murmur, regular rhythm. ABDOMEN: No hepatosplenomegaly, normal bowel sounds, no guarding or rigidity. SPINE: No scoliosis or deformity, surgical dressing dry and intact. SKIN: No rashes CENTRAL NERVOUS SYSTEM: No focal deficits, tone is normal in all 4 extremities. EXTREMITIES: There is no peripheral edema. No clubbing, no cyanosis. Peripheral pulses are intact. - Labs CBC & Chem 7: 07/31/23 07:02 07/31/23 07:02 Labs: Abnormal Lab Results - Last 24 Hours (Table) 07/30/23 07/31/23 07/31/23 Range/Units 18:08 07:02 07:02 RBC 3.72 L (4.30-5.90) m/uL Hgb 11.6 L (13.0-17.5) gm/dL Hct 34.6 L (39.0-53.0) % Plt Count 112 L (150-450) k/uL Lymphocytes # 0.6 L (1.0-4.8) k/uL Sodium 128 L 132 L (137-145) mmol/L Creatinine 0.57 L 0.51 L (0.66-1.25) mg/dL Glucose 235 H 150 H (74-99) mg/dL Calcium 8.0 L 8.0 L (8.4-10.2) mg/dL Microbiology - Last 24 Hours (Table) 07/29/23 16:30 Blood Culture - Preliminary Blood 07/29/23 16:34 Blood Culture - Preliminary Blood Assessment and Plan Assessment: Status post fall, with multiple fractures including fractures of T12 with retropulsion, multiple left-sided rib fractures, and transverse fractures of L4 and L5. Open reduction internal fixation of T12 with T11-L1 stabilization for T12 fracture performed on July 30, 2023. Postoperative day #1 History of tobacco use, and possible underlying COPD History of alcohol use No other significant medical issues, according to the patient Plan: The patient was seen and evaluated Labs and medications reviewed Encourage increased use of the incentive spirometer Currently stable and on room air We will continue to follow I have personally seen and examined the patient, performed the documentation and the assessment and plan as written. Number of minutes spent on the visit: 10.
--- NOTE | 2023-07-31 12:05 | P.PN ---
Subjective Progress Note Date: 07/31/23 Patient status post kyphoplasty. Currently on breathing treatments. Denies any active abdominal pain. Tolerating diet. DVT prophylaxis. Pulmonary prophylaxis with toilet. PT OT management per orthopedic. Discharge pending consultants management of compression fracture. Objective - Vital Signs Vital signs: Vital Signs Temp 97.7 F 07/31/23 07:50 Pulse 88 07/31/23 12:02 Resp 17 07/31/23 08:00 BP 152/88 07/31/23 07:50 Pulse Ox 93 L 07/31/23 08:59 FiO2 21 07/30/23 08:04 Intake & Output 07/30/23 07/31/23 07/31/23 18:59 06:59 18:59 Intake Total 2600 Output Total 1850 Balance 750 Intake: IV 2600 Output: Urine 1700 Estimated Blood Loss 150 Other: Voiding Method Urinal Indwelling Catheter Indwelling Catheter - Labs CBC & Chem 7: 07/31/23 07:02 07/31/23 07:02 Labs: Abnormal Lab Results - Last 24 Hours (Table) 07/30/23 07/31/23 07/31/23 Range/Units 18:08 07:02 07:02 RBC 3.72 L (4.30-5.90) m/uL Hgb 11.6 L (13.0-17.5) gm/dL Hct 34.6 L (39.0-53.0) % Plt Count 112 L (150-450) k/uL Lymphocytes # 0.6 L (1.0-4.8) k/uL Sodium 128 L 132 L (137-145) mmol/L Creatinine 0.57 L 0.51 L (0.66-1.25) mg/dL Glucose 235 H 150 H (74-99) mg/dL Calcium 8.0 L 8.0 L (8.4-10.2) mg/dL Microbiology - Last 24 Hours (Table) 07/29/23 16:30 Blood Culture - Preliminary Blood 07/29/23 16:34 Blood Culture - Preliminary Blood
--- NOTE | 2023-07-31 12:45 | P.PN ---
Subjective Progress Note Date: 07/31/23 (delayed charting seen at 0930) Patient is a 58-year-old male with history of psoriasis, GERD, and chronic knee pain who presented to the emergency department with worsening back pain. Patient had a significant fall down the stairs about 1 week prior without loss of consciousness. He was initially seen at an outside hospital and was found to have rib fractures and was sent home. The ER here he underwent an extensive evaluation which demonstrated left posterior rib fractures 5 through 12, T12 burst fracture, and circumferential esophageal thickening. Patient was subsequently admitted to trauma services. We were consulted. He reports that his pain is better than prior to surgery. He is breathing easier and overall feels better today. Vital signs reviewed General: non toxic, no distress, appears younger than stated age Cardiovascular: S1S2 reg, no murmur Lungs: Decreased breath sounds bilateral, no rhonchi, no rales, no accessory muscle use Abdominal: Soft, nontender to palpation, no guarding Ext: No gross muscle atrophy, no edema b/l lower extremities, no contractures Neuro: CN II-XI grossly intact,, limited movement of bilateral lower extremity secondary to pain, moving upper extremities without difficulty Psych: Alert, oriented, appropriate affect Assessment/Plan: 58-year-old male with T12 unstable burst fracture with moderate stenosis due to retropulsion from mechanical fall downstairs, Status post ORIF with stabilization T11-L1 07/31/23 Left ribs 5 through 12, posterior fracture L4-5 right transverse process fractures Pulmonary contusion Hyponatremia-- hypovolemic vs related to liver disease Thrombocytopenia -Surgery note reviewed: Continue current care -Spine Ortho note reviewed: Weight-bear as tolerated - LR to 75 ml/hr - pulmonary hygiene -Dilaudid 0.5 to 1 mg IV every 4 hours as needed for pain, Flexeril 5 mg oral 3 times daily as needed for muscle spasms, [place] 5 and 03/08/2025 depending on pain scale every 6 hours. Suggest starting gabapentin 100 mg 3 times daily when patient is postoperative and able to eat again. Influenza A - Tamiflu 75 mg BID dose # 4/ -pulmonary note reviewed: Continue current level of care. Alcohol misuse Transaminitis, coagulopathy -Patient drinks 1/5 2 to 4 days/week -CIWA protocol with Ativan dosing per CIWA score, thiamine 100 mg daily, folic acid 1 mg daily. Monitor for significant alcohol withdrawal -Continue to follow liver enzymes. Records reviewed from [facility] and it appears his liver enzymes are stable at this time. GERD Esophageal circumferential mural thickening -Outpatient EGD after discharge Imaging: None new Data Review: Labs reviewed from today include CBC and basic metabolic profile which are immanuel rkable for hemoglobin 11.6, platelets 112, sodium 132 DVT prophylaxis: Heparin Thank you for allowing us to participate in the care of this pleasant patient. Do not hesitate to contact us with questions. Someone can be reached from the [facility] hospitalist group all hours of the day at [phone] or via [employer]. This dictation was prepared using [employer] voice recognition software. Though every attempt is made to correct errors during dictation some may still exist. Objective - Vital Signs Vital signs: Vital Signs Temp 97.7 F 07/31/23 07:50 Pulse 90 07/31/23 12:11 Resp 17 07/31/23 08:00 BP 152/88 07/31/23 07:50 Pulse Ox 93 L 07/31/23 08:59 FiO2 21 07/30/23 08:04 Intake & Output 07/30/23 07/31/23 07/31/23 18:59 06:59 18:59 Intake Total 2600 Output Total 1850 Balance 750 Intake: IV 2600 Output: Urine 1700 Estimated Blood Loss 150 Other: Voiding Method Urinal Indwelling Catheter Indwelling Catheter - Labs CBC & Chem 7: 07/31/23 07:02 07/31/23 07:02 Labs: Abnormal Lab Results - Last 24 Hours (Table) 07/30/23 07/31/23 07/31/23 Range/Units 18:08 07:02 07:02 RBC 3.72 L (4.30-5.90) m/uL Hgb 11.6 L (13.0-17.5) gm/dL Hct 34.6 L (39.0-53.0) % Plt Count 112 L (150-450) k/uL Lymphocytes # 0.6 L (1.0-4.8) k/uL Sodium 128 L 132 L (137-145) mmol/L Creatinine 0.57 L 0.51 L (0.66-1.25) mg/dL Glucose 235 H 150 H (74-99) mg/dL Calcium 8.0 L 8.0 L (8.4-10.2) mg/dL Microbiology - Last 24 Hours (Table) 07/29/23 16:30 Blood Culture - Preliminary Blood 07/29/23 16:34 Blood Culture - Preliminary Blood
[2023-07-31] MEDS: MELATONIN 5 MG TABLET PO STA (22:14)
[2023-08-01] MEDS: polyethylene glycoL 3350 17 GM POWD.PACK PO SCH (09:36)
[2023-08-01] MEDS ORDERED: oxyCODONE-APAP 5-325MG 1 EACH TAB PO PRN (09:45)
--- NOTE | 2023-08-01 09:53 | P.PN ---
Subjective Progress Note Date: 08/01/23 Patient is a 58-year-old male with history of psoriasis, GERD, and chronic knee pain who presented to the emergency department with worsening back pain. Patient had a significant fall down the stairs about 1 week prior without loss of consciousness. He was initially seen at an outside hospital and was found to have rib fractures and was sent home. The ER here he underwent an extensive evaluation which demonstrated left posterior rib fractures 5 through 12, T12 burst fracture, and circumferential esophageal thickening. Patient was subsequently admitted to trauma services. We were consulted for medical management. He developed a fever on 07/29 and was found to be positive for flu A. He underwent operative repair of his T12 burst fracture on 07/30/22. Patient seen and examined at bedside. He is overall feeling better than prior to surgery. His breathing is getting easier and he is having a a less productive cough. He continues to have significant pain and the [place] is not improving this but he is getting some relief with the Dilaudid. No BM yesterday. Numbness in hands are getting better. Vital signs reviewed General: non toxic, no distress, appears younger than stated age Cardiovascular: S1S2 reg, no murmur Lungs: Decreased breath sounds bilateral, no rhonchi, no rales, no accessory muscle use Abdominal: Soft, nontender to palpation, no guarding Ext: No gross muscle atrophy, no edema b/l lower extremities, no contractures Neuro: CN II-XI grossly intact,, No focal neuro deficits. Psych: Alert, oriented, appropriate affect Assessment/Plan: 58-year-old male with T12 unstable burst fracture with moderate stenosis due to retropulsion from mechanical fall downstairs, Status post ORIF with stabilization T11-L1 07/31/23 Left ribs 5 through 12, posterior fracture L4-5 right transverse process fractures Pulmonary contusion Hyponatremia-- hypovolemic vs related to liver disease, improved Thrombocytopenia - D/W spine ortho his is cleared from their stand point once pain is better controlled. Weight-bear as tolerated - LR to 75 ml/hr - pulmonary hygiene -Dilaudid 0.5 to 1 mg IV every 4 hours as needed for pain, Flexeril 5 mg oral 3 times daily as needed for muscle spasms - Start percocet 5-7.5 mg PO q6h depending on pain scale, d/c norco. Influenza A - Tamiflu 75 mg BID dose # 11/13 -pulmonary note reviewed: Continue current level of care. Constipation - Miralax 17 g daily - senna 2 tablets daily Alcohol misuse Transaminitis, coagulopathy -Patient drinks 1/5 2 to 4 days/week -CIWA protocol with Ativan dosing per CIWA score (has not required ativan since admission), thiamine 100 mg daily, folic acid 1 mg daily. Monitor for significant alcohol withdrawal -Continue to follow liver enzymes. Records reviewed from [facility] and it appears his liver enzymes are stable at this time. - follow BMP GERD Esophageal circumferential mural thickening -Outpatient EGD after discharge Imaging: None new Data Review: CBC and CMP from today. These will be reviewed when available. DVT prophylaxis: Heparin Thank you for allowing us to participate in the care of this pleasant patient. Do not hesitate to contact us with questions. Someone can be reached from the [facility] hospitalist group all hours of the day at [phone] or via [employer]. This dictation was prepared using [employer] voice recognition software. Though every attempt is made to correct errors during dictation some may still exist. Objective - Vital Signs Vital signs: Vital Signs Temp 97.6 F 08/01/23 07:00 Pulse 76 08/01/23 08:18 Resp 19 08/01/23 07:00 BP 113/74 08/01/23 07:00 Pulse Ox 97 08/01/23 08:06 FiO2 21 08/01/23 08:06 Intake & Output 07/31/23 08/01/23 08/01/23 18:59 06:59 18:59 Output Total 350 300 Balance -350 -300 Output: Urine 350 300 Other: Voiding Method Indwelling Catheter # Voids 3 - Labs CBC & Chem 7: 07/31/23 07:02 07/31/23 07:02 Labs: Microbiology - Last 24 Hours (Table) 07/29/23 16:30 Blood Culture - Preliminary Blood 07/29/23 16:34 Blood Culture - Preliminary Blood
[2023-08-01] MEDS: oxyCODONE-APAP 7.5-325MG 1 EACH TAB PO PRN (10:48)
--- NOTE | 2023-08-01 10:57 | P.PN ---
Subjective Progress Note Date: 08/01/23 Principal diagnosis: T12 burst fracture; back pain; posterior rib fractures from 6 through 12; L4-L5 stenosis Patient was seen at bedside this morning lying semirecumbent position with dressings over thoracolumbar spine. Patient says TLSO brace was delivered yesterday and he was walking around the room with brace on. Patient does feel more stable with brace on when up and about. Patient says he is still having some back pain and IV pain medication seems to be the only thing that is helping control his pain.Patient is looking forward to working with therapy today. Richa vaughn is looking forward to going home today. Patient denies fever, shortness of breath, nausea, vomiting, change, loss of bowel/bladder control. Objective - Vital Signs Vital signs: Vital Signs Temp 97.6 F 08/01/23 07:00 Pulse 76 08/01/23 08:18 Resp 19 08/01/23 07:00 BP 113/74 08/01/23 07:00 Pulse Ox 97 08/01/23 08:06 FiO2 21 08/01/23 08:06 Intake & Output 07/31/23 08/01/23 08/01/23 18:59 06:59 18:59 Output Total 350 300 Balance -350 -300 Output: Urine 350 300 Other: Voiding Method Indwelling Catheter # Voids 3 - Exam Inspection: Dressing is clean, dry, intact. Negative for any active drainage. Some swelling present over left side incision. some ecchymoses present. Sensation: Equal, symmetric, bilaterally intact throughout the upper and lower extremities. Palpation: There is moderate tenderness to palpation diffusely throughout the lower thoracic and upper lumbar spine. Moderate tenderness to palpation over the lower lumbar spine and midline there is generalized paravertebral tenderness to palpation throughout the lower thoracic and lumbar spines. Moderate tenderness patient over the posterior rib cage. Nontender to palpation throughout rest exam. Range of motion: Patient does have some limited range of motion in the bilateral lower extremities and hip flexion and extension secondary to referred pain to the back. Patient has full range of motion throughout bilateral upper extremity is on exam Motor: 4/5 in all major motor groups in bilateral lower extremity. 5/5 in all major motor groups in bilateral upper extremity. Neurovascular: Radial pulse intact, 2+ bilaterally. Cap refill under 3 seconds in digits in upper extremities. Special tests: Negative Homans bilaterally. Negative Paulette bilaterally. Negative clonus bilaterally. - Labs CBC & Chem 7: 07/31/23 07:02 07/31/23 07:02 Labs: Microbiology - Last 24 Hours (Table) 07/29/23 16:30 Blood Culture - Preliminary Blood 07/29/23 16:34 Blood Culture - Preliminary Blood Assessment and Plan Assessment: 1. T12 burst fracture; back pain; posterior rib fractures from 6 through 12; L4-L5 stenosis - Postoperative day 2 status post T12 ORIF stabilization from T11 through L1 Plan: 1. T12 burst fracture; back pain; posterior rib fractures from 6 through 12; L4- L5 stenosis - surgery performed 07/30/2023 T12 ORIF stabilization from T11 through L1. Patient stable at bedside this morning. TLSO brace at bedside. Dressings appear to be clean, dry, intact at this time. Assess dressings daily. Patient may weight-bear as tolerated with walker and TLSO brace on when up and about. Pain medication as needed. Weight-bear as tolerated with walker and brace. Patient is stable from orthopedic standpoint for discharge from hospital. Follow up with Dr. Mccall 2 weeks for postop eval. Orthopedics will be available as needed to see patient during stay. 2. Appreciate medical management and other specialty recommendations 3. Pain management - Dilaudid; [place]; Flexeril 4. DVT prophylaxis - heparin 5. GI prophylaxis - Protonix; senna; milk of magnesia 6. PT/OT - weightbearing as tied with walker and TLSO brace on while up and about 7. Encourage incentive spirometer use Time with Patient: Less than 30
--- NOTE | 2023-08-01 15:03 | P.PN ---
Subjective Progress Note Date: 08/01/23 58-year-old male without any past medical history, who apparently was at [facility], after falling, 6 days ago. There he was evaluated, and had some x-rays done, which determined that he had some rib fractures on the left side. He apparently hit his head, and did lose consciousness. Apparently he did not have a CAT scan or x-rays of the spine, at the outside facility. The patient presents to the emergency room, complaining of pain in the left side of his chest, from his rib fractures, and some back pain as well. In addition, he cannot take a deep breath. The patient was found to have significant rib fractures on the left, as well as some fractures of the lower thoracic spine, and lumbar spine. Laboratory data includes a white count 4.55, hemoglobin 12.7, hematocrit 37.3, and platelet count 144,000. PT is 13.7 with an INR 1.29. Sodium 133, potassium 4.2, chlorides 100, CO2 26, BUN 16, creatinine 0.7. Close is 111. Calcium 8.2. AST 150. ALT 56. X-rays of the head and cervical spine were negative. Chest CT shows numerous left-sided rib fractures, a compression deformity of T12, and a trace left-sided pleural effusion. There is also cirrhosis and splenomegaly, and hiatal hernia. In addition, there were posterior rib fractures from T4-T12. As well as L4 transverse process nondisplaced fracture, and an L5 transverse process showing a displaced fracture. The patient is seen today July 30, 2023 in follow-up on the regular medical floor. He is currently resting fairly comfortably in bed. He is maintaining O2 saturations in the 90s on 2 L/min per nasal cannula. He has normal saying at 125 MLS per hour. He is now tested positive for influenza A. White count 5.1. Hemoglobin 13.7. Platelets 123. INR 1.2. Sodium 127. Potassium 4.3. Bicarb 26. BUN 14. Creatinine 0.53. AST 196. ALT 58. He remains on bronchodilators. Heparin for DVT prophylaxis. Remains on the CIWA protocol. Has been initiated on Tamiflu. The patient is seen today July 31, 2023 in follow-up on the regular medical floor. He is currently sitting up in bed. Awake and alert in no acute distress. He did undergo surgery yesterday that included ORIF stabilization T11-L1 for his T12 burst fracture. His pain is well-controlled. He denies any worsening shortness of breath, cough or congestion. Continues to maintain O2 saturations in the 90s on room air. Working with the incentive spirometer. Afebrile. Hemodynamically stable. Follow-up CT scan of the spine revealed postsurgical changes and no evidence of acute postop complication. White count 7.0. Hemoglobin 11.6. Platelet count 112. Sodium 132. Potassium 4.5. Bicarb 28. BUN 11. Creatinine 0.51. Glucose 150. He is continued on bronchodilators. Heparin for DVT prophylaxis. Tamiflu for his influenza A infection. On today's evaluation of 08/01/2023, the patient has no specific complaints and the patient is currently on room air oxygen. He is complaining of pain along his rib cage at the site of his rib fracture. He is status post ORIF and stabilization of T11/L1 spine and the patient also had a T12 burst fracture. He is doing well for now. He is using incentive spirometer. Note that during the current hospital stay, the patient also tested positive for influenza A and the patient is currently on Tamiflu. The patient is on DuoNeb updrafts. The patient has been taking Percocet for pain control. He is also on Senokot and milk of mag regarding constipation. There is a white cell count at 7 with a hemoglobin 11.6 and a platelet count of 112. Sodium level is at 132 with a potassium level of 4.5 and a chloride of 102, BUN is 11 with a creatinine of 0.5. He is on room air oxygen. Denies having any specific complaints. Objective - Vital Signs Vital signs: Vital Signs Temp 97.6 F 08/01/23 07:00 Pulse 76 08/01/23 08:18 Resp 19 08/01/23 07:00 BP 113/74 08/01/23 07:00 Pulse Ox 97 08/01/23 08:06 FiO2 21 08/01/23 08:06 Intake & Output 07/31/23 08/01/23 08/01/23 18:59 06:59 18:59 Output Total 350 300 Balance -350 -300 Output: Urine 350 300 Other: Voiding Method Indwelling Catheter Toilet Urinal # Voids 3 - Exam GENERAL EXAM: Alert, 58-year-old male, on room air, comfortable in no apparent distress. HEAD: Normocephalic. EYES: Normal reaction of pupils, equal size. NOSE: Clear with pink turbinates. THROAT: No erythema or exudates. NECK: No masses, no JVD. CHEST: No chest wall deformity. LUNGS: Equal air entry with faint crackles in the posterior bases. CVS: S1 and S2 normal with no audible murmur, regular rhythm. ABDOMEN: No hepatosplenomegaly, normal bowel sounds, no guarding or rigidity. SPINE: No scoliosis or deformity, surgical dressing dry and intact. SKIN: No rashes CENTRAL NERVOUS SYSTEM: No focal deficits, tone is normal in all 4 extremities. EXTREMITIES: There is no peripheral edema. No clubbing, no cyanosis. Peripheral pulses are intact. - Labs CBC & Chem 7: 07/31/23 07:02 07/31/23 07:02 Labs: Microbiology - Last 24 Hours (Table) 07/29/23 16:30 Blood Culture - Preliminary Blood 07/29/23 16:34 Blood Culture - Preliminary Blood Assessment and Plan Plan: Status post fall, with multiple fractures including fractures of T12 with retropulsion, multiple left-sided rib fractures, and transverse fractures of L4 and L5. Open reduction internal fixation of T12 with T11-L1 stabilization for T12 fracture performed on July 30, 2023. Postoperative day #2 L4-L5 right transverse process fracture Pulmonary contusion Left rib fracture 5 through 12 posterior, nondisplaced Chest wall pain secondary to above Alcoholism History of tobacco use, and possible underlying COPD Plan: Continue pain control and the patient is currently on Percocet. Please watch for any bowel movement activity and the patient is currently on a combination of Senokot and milk of mag Encourage increased use of the incentive spirometer Currently stable and on room air We will continue to follow. No interval worsening in oxygenation. Continue awaiting the back brace. Increase mobility. Will continue to follow.
--- NOTE | 2023-08-01 16:14 | P.PN ---
Subjective Progress Note Date: 08/01/23 CHIEF COMPLAINT: Fall HISTORY OF PRESENT ILLNESS: Patient mated to the hospital after a fall with rib fractures and T12 compression fracture. Patient status post kyphoplasty over the weekend. Patient complains of pain. He reports that most of his pain is in the left rib cage. He is flu positive. He did have a bowel movement 2 days ago. He is having flatus. Denies any nausea or vomiting. Denies any abdominal pain. He is on room air PHYSICAL EXAM: VITAL SIGNS: Reviewed. GENERAL: Well-developed in no acute distress. ABDOMEN: Soft. Nondistended. Nontender. NEUROLOGIC: Alert and oriented. Cranial nerves II through XII grossly intact. ASSESSMENT: 1. Trauma with fall downstairs and prior to that being hit in the back 2. Multiple left-sided rib fractures 3. Compression deformity superior endplate of T12 vertebral body with retropulsed fragments causing moderate central canal stenosis and possible compression of the cord noted on CT scan 4. Shortness of breath and cough 5. Lower esophageal circumferential mural thickening noted on CT scan 6. Influenza positive PLAN: -Discussed pain management with medicine service. Agree with the addition of Percocet -Continue to increase activity level -Encourage incentive spirometer use -Continue good bowel regimen -DVT prophylaxis subcu heparin and GI prophylaxis Proton[facility] Ann[facility]cer note has been reviewed by physician. Signing provider agrees with the documented findings, assessment, and plan of care. I have personally seen and examined the patient, reviewed the [employer] /PAs history, exam and MDM and agree with the assessment and plan as written. Based on total visit time, I have performed more than 50% of the visit. As above: Patient doing better today. His pain has continued to slowly improve. He is ambulating with the assistance of physical therapy. He has not had a bowel movement in 2 to 3 days. Tolerating diet. No abdominal pain. Continue pulmonary toilet. Continue analgesics. Will follow. Objective - Vital Signs Vital signs: Vital Signs Temp 98.7 F 08/01/23 14:06 Pulse 83 08/01/23 14:06 Resp 19 08/01/23 14:06 BP 132/67 08/01/23 14:06 Pulse Ox 96 08/01/23 14:06 FiO2 21 08/01/23 08:06 Intake & Output 07/31/23 08/01/23 08/01/23 18:59 06:59 18:59 Output Total 350 300 Balance -350 -300 Output: Urine 350 300 Other: Voiding Method Indwelling Catheter Toilet Urinal # Voids 3 - Labs CBC & Chem 7: 07/31/23 07:02 07/31/23 07:02 Labs: Microbiology - Last 24 Hours (Table) 07/29/23 16:30 Blood Culture - Preliminary Blood 07/29/23 16:34 Blood Culture - Preliminary Blood
[2023-08-01] MEDS: GABAPENTIN 300 MG CAP PO SCH (17:15)
[2023-08-02] MEDS: KETOROLAC 15 MG/ML 1 ML VIAL IVP SCH (00:46)
[2023-08-02] MEDS: SENNOSIDES-DOCUSATE SODIUM 1 EACH TAB PO SCH (09:32)
[2023-08-02 11:14] LABS: HCT 33.1 % (39.6-50.0); HGB 11.1 g/dL (13.0-17.0); MCH 31.1 pg (27.0-32.0); MCHC 33.5 g/dL (32.0-37.0); MCV 92.7 FL (80.0-97.0); Mean Platelet Volume 9.9 FL (9.5-12.2); NRBC Per 100 WBC 0 X 10*3/uL (0.00-0.01); Platelet Count 131 X 10*3/uL (140-440); RBC 3.57 X 10*6/uL (4.40-5.60); RDW 14.8 % (11.5-14.5); WBC 4.71 X 10*3/uL (4.50-10.00)
[2023-08-02 11:26] LABS: ALT 31 U/L (10-49); AST 87 U/L (14-35); Albumin 2.6 g/dL (3.8-4.9); Alkaline Phosphatase 85 U/L (41-126); Calcium 8.1 mg/dL (8.7-10.3); Carbon Dioxide 28.2 mmol/L (21.6-31.8); Chloride 99 mmol/L (96-109); Globulin 2.9 g/dL (1.6-3.3); Glucose 86 mg/dL (70-110); Potassium 4.2 mmol/L (3.5-5.5); Sodium 133 mmol/L (135-145); Total Bilirubin 0.6 mg/dL (0.3-1.2); Total Protein 5.5 g/dL (6.2-8.2)
--- NOTE | 2023-08-02 13:24 | P.PN ---
Subjective Progress Note Date: 08/02/23 58-year-old male with history of psoriasis, GERD, and chronic knee pain who presented to the emergency department with worsening back pain. Patient had a significant fall down the stairs about 1 week prior without loss of consciousness. He was initially seen at an outside hospital and was found to have rib fractures and was sent home. He underwent extensive evaluation in the ED which demonstrated left posterior rib fractures 5 through 12, T12 burst fracture, and circumferential esophageal thickening. Patient was subsequently admitted to trauma services. We were consulted for medical management. He developed a fever on 07/29 and was found to be positive for flu A. He underwent operative repair of his T12 burst fracture on 07/30/22. 08/02 Patient was seen and examined. He reports 03/15 pain. Working well with PT. Reports dry cough. CBC Hg 11.1 Hct 33.1 Plt 131. CMP Na 133, Ca 8.1, AST 87, T. protein 5.5, alb 2.6. Vital signs reviewed General: non toxic, no distress, appears younger than stated age Cardiovascular: S1S2 reg, no murmur Lungs: Decreased breath sounds bilateral, no rhonchi, no rales, no accessory muscle use Abdominal: Soft, nontender to palpation, no guarding Ext: No gross muscle atrophy, no edema b/l lower extremities, no contractures Neuro: No focal neuro deficits. Psych: Alert, oriented, appropriate affect Based on my assessment of this patient, this patient meets a moderate complexity level of care. Patient has an acute diagnosis of T12 burst fracture with moderate stenosis status post ORIF T11-L1 07/31 that poses a threat to life or bodily function. Left rib posterior fracture 5 through 12 L4-5 right transverse process fracture T12 burst fracture with moderate stenosis status post ORIF T11-L1 07/31: Pain management with Flexeril 5 mg PO TID PRN, Gabapentin 300 mg PO TID, Dilaudid 0.5-1 mg IV PRN, Toradol 15 mg IV Q6H, Percocet 5-7.5 mg PO PRN. Orthopedic surgery on board. Acute blood loss anemia: Expected result of surgery. Transfuse if Hg < 7. Influenza A: Tamiflu 75 mg PO BID (12/13). Pulmonary contusion: Pulmonary hygiene. DuoNeb TID scheduled. Pulmonary on board. Hyponatremia: Hypovolemic versus related to liver disease. Improved. Thrombocytopenia Constipation: Miralax 17 g PO QD. Senna 2 tablets PO QD. Alcohol abuse with transaminitis and coagulopathy: CIWA protocol with Ativan dosing per CIWA score (has not required ativan since admission). Thiamine 100 mg PO QD, folic acid 1 mg PO QD. Monitor for significant alcohol withdrawal. Records reviewed from [facility] and it appears his liver enzymes are stable at this time. GERD Esophageal circumferential mural thickening: Outpatient EGD after discharge. CODE STATUS: FULL CODE DVT Prophylaxis: Heparin SQ GI Prophylaxis: Protonix PO Designated medical POA if patient is not able to make medical decisions for themselves: I have reviewed the following cosmetic consultant notes: Orthopedic, Trauma, Pulmonary note. I have reviewed the results of the following tests: CBC and CMP. I have ordered the following tests: I have discussed the care of this patient with the following independent historian: Discussed with RN regarding pain management. I have independently interpreted the following test below: I have discussed the management of this patient with the following physician: Objective - Vital Signs Vital signs: Vital Signs Temp 98.4 F 08/02/23 06:50 Pulse 72 08/02/23 06:50 Resp 16 08/02/23 06:50 BP 114/71 08/02/23 06:50 Pulse Ox 95 08/02/23 06:50 FiO2 21 08/01/23 08:06 Intake & Output 08/01/23 08/02/23 08/02/23 18:59 06:59 18:59 Intake Total 620 Output Total 950 Balance -330 Intake: Oral 620 Output: Urine 950 Other: Voiding Method Toilet Urinal - Labs CBC & Chem 7: 08/02/23 06:34 08/02/23 06:34 Labs: Microbiology - Last 24 Hours (Table) 07/29/23 16:30 Blood Culture - Preliminary Blood 07/29/23 16:34 Blood Culture - Preliminary Blood
--- NOTE | 2023-08-02 13:58 | P.PN ---
Subjective Progress Note Date: 08/02/23 58-year-old male without any past medical history, who apparently was at [facility], after falling, 6 days ago. There he was evaluated, and had some x-rays done, which determined that he had some rib fractures on the left side. He apparently hit his head, and did lose consciousness. Apparently he did not have a CAT scan or x-rays of the spine, at the outside facility. The patient presents to the emergency room, complaining of pain in the left side of his chest, from his rib fractures, and some back pain as well. In addition, he cannot take a deep breath. The patient was found to have significant rib fractures on the left, as well as some fractures of the lower thoracic spine, and lumbar spine. Laboratory data includes a white count 4.55, hemoglobin 12.7, hematocrit 37.3, and platelet count 144,000. PT is 13.7 with an INR 1.29. Sodium 133, potassium 4.2, chlorides 100, CO2 26, BUN 16, creatinine 0.7. Close is 111. Calcium 8.2. AST 150. ALT 56. X-rays of the head and cervical spine were negative. Chest CT shows numerous left-sided rib fractures, a compression deformity of T12, and a trace left-sided pleural effusion. There is also cirrhosis and splenomegaly, and hiatal hernia. In addition, there were posterior rib fractures from T4-T12. As well as L4 transverse process nondisplaced fracture, and an L5 transverse process showing a displaced fracture. The patient is seen today July 30, 2023 in follow-up on the regular medical floor. He is currently resting fairly comfortably in bed. He is maintaining O2 saturations in the 90s on 2 L/min per nasal cannula. He has normal saying at 125 MLS per hour. He is now tested positive for influenza A. White count 5.1. Hemoglobin 13.7. Platelets 123. INR 1.2. Sodium 127. Potassium 4.3. Bicarb 26. BUN 14. Creatinine 0.53. AST 196. ALT 58. He remains on bronchodilators. Heparin for DVT prophylaxis. Remains on the CIWA protocol. Has been initiated on Tamiflu. The patient is seen today July 31, 2023 in follow-up on the regular medical floor. He is currently sitting up in bed. Awake and alert in no acute distress. He did undergo surgery yesterday that included ORIF stabilization T11-L1 for his T12 burst fracture. His pain is well-controlled. He denies any worsening shortness of breath, cough or congestion. Continues to maintain O2 saturations in the 90s on room air. Working with the incentive spirometer. Afebrile. Hemodynamically stable. Follow-up CT scan of the spine revealed postsurgical changes and no evidence of acute postop complication. White count 7.0. Hemoglobin 11.6. Platelet count 112. Sodium 132. Potassium 4.5. Bicarb 28. BUN 11. Creatinine 0.51. Glucose 150. He is continued on bronchodilators. Heparin for DVT prophylaxis. Tamiflu for his influenza A infection. On today's evaluation of 08/01/2023, the patient has no specific complaints and the patient is currently on room air oxygen. He is complaining of pain along his rib cage at the site of his rib fracture. He is status post ORIF and stabilization of T11/L1 spine and the patient also had a T12 burst fracture. He is doing well for now. He is using incentive spirometer. Note that during the current hospital stay, the patient also tested positive for influenza A and the patient is currently on Tamiflu. The patient is on DuoNeb updrafts. The patient has been taking Percocet for pain control. He is also on Senokot and milk of mag regarding constipation. There is a white cell count at 7 with a hemoglobin 11.6 and a platelet count of 112. Sodium level is at 132 with a potassium level of 4.5 and a chloride of 102, BUN is 11 with a creatinine of 0.5. He is on room air oxygen. Denies having any specific complaints. On 08/02/2023, patient is being seen for a follow-up. He is still having some congested cough and skeletal chest wall pain especially on the left side of the chest. As mentioned, the patient has COPD and the patient was also diagnosed having an acute influenza infection and the patient currently is on Tamiflu. He is continues to have also issues with back pain. No altered mentation. Is currently on room air oxygen.His pulse ox is in order of 96% on room air oxygen. The white cell count is 4.7 with a hemoglobin of 11.1 and a platelet count of 131. Sodium is at 133, BUN is at 12 with a creatinine of 0.8. LFTs are adequate with an AST of 87 ALT of 31 and a bilirubin level of 0.6. Renal function is stable with a creatinine of 0.8 and a BUN of 12. No other significant events otherwise for now. The patient is on DuoNeb updrafts 3 times a day. He is receiving Dilaudid for pain control in combination with Toradol and Percocet Objective - Vital Signs Vital signs: Vital Signs Temp 98.4 F 08/02/23 06:50 Pulse 88 08/02/23 09:29 Resp 16 08/02/23 06:50 BP 114/71 08/02/23 06:50 Pulse Ox 95 08/02/23 06:50 FiO2 21 08/01/23 08:06 Intake & Output 08/01/23 08/02/23 08/02/23 18:59 06:59 18:59 Intake Total 620 Output Total 950 Balance -330 Intake: Oral 620 Output: Urine 950 Other: Voiding Method Toilet Urinal # Voids 3 - Exam GENERAL EXAM: Alert, 58-year-old male, on room air, comfortable in no apparent distress. HEAD: Normocephalic. EYES: Normal reaction of pupils, equal size. NOSE: Clear with pink turbinates. THROAT: No erythema or exudates. NECK: No masses, no JVD. CHEST: No chest wall deformity. LUNGS: Equal air entry with faint crackles in the posterior bases. CVS: S1 and S2 normal with no audible murmur, regular rhythm. ABDOMEN: No hepatosplenomegaly, normal bowel sounds, no guarding or rigidity. SPINE: No scoliosis or deformity, surgical dressing dry and intact. SKIN: No rashes CENTRAL NERVOUS SYSTEM: No focal deficits, tone is normal in all 4 extremities. EXTREMITIES: There is no peripheral edema. No clubbing, no cyanosis. Peripheral pulses are intact. - Labs CBC & Chem 7: 08/02/23 06:34 08/02/23 06:34 Labs: Abnormal Lab Results - Last 24 Hours (Table) 08/02/23 08/02/23 Range/Units 06:34 06:34 RBC 3.57 L (4.40-5.60) X 10*6/uL Hgb 11.1 L (13.0-17.0) g/dL Hct 33.1 L (39.6-50.0) % RDW 14.8 H (11.5-14.5) % Plt Count 131 L (140-440) X 10*3/uL Sodium 133 L (135-145) mmol/L Calcium 8.1 L (8.7-10.3) mg/dL AST 87 H (14-35) U/L Total Protein 5.5 L (6.2-8.2) g/dL Albumin 2.6 L (3.8-4.9) g/dL Albumin/Globulin Ratio 0.90 L (1.60-3.17) Ratio Microbiology - Last 24 Hours (Table) 07/29/23 16:30 Blood Culture - Preliminary Blood 07/29/23 16:34 Blood Culture - Preliminary Blood Assessment and Plan Plan: Status post fall, with multiple fractures including fractures of T12 with retropulsion, multiple left-sided rib fractures, and transverse fractures of L4 and L5. Open reduction internal fixation of T12 with T11-L1 stabilization for T12 fracture performed on July 30, 2023. Postoperative day #3 L4-L5 right transverse process fracture Pulmonary contusion Acute influenza A infection, currently on Tamiflu Left rib fracture 5 through 12 posterior, nondisplaced Chest wall pain secondary to above Alcoholism History of tobacco use, and possible underlying COPD Plan: Add prednisone burst taper starting with 40 mg p.o. daily Continue Tamiflu Provide the patient incentive spirometer Continue pain control and the patient is currently on Percocet. Please watch for any bowel movement activity and the patient is currently on a combination of Senokot and milk of mag Encourage increased use of the incentive spirometer Currently stable and on room air We will continue to follow. No interval worsening in oxygenation. Continue awaiting the back brace. Increase mobility. Will continue to follow.
[2023-08-02] MEDS: predniSONE 20 MG TAB PO SCH (15:42)
[2023-08-02] MEDS ORDERED: methylPREDNISolone SOD SUCCI 40 MG/ML 1 ML VIAL IV SCH (16:00)
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
[2023-08-03] MEDS: BENZONATATE 100 MG CAP PO PRN (13:11)
--- NOTE | 2023-08-03 13:51 | P.PN ---
Subjective Progress Note Date: 08/03/23 58-year-old male with history of psoriasis, GERD, and chronic knee pain who presented to the emergency department with worsening back pain. Patient had a significant fall down the stairs about 1 week prior without loss of consciousness. He was initially seen at an outside hospital and was found to have rib fractures and was sent home. He underwent extensive evaluation in the ED which demonstrated left posterior rib fractures 5 through 12, T12 burst fracture, and circumferential esophageal thickening. Patient was subsequently admitted to trauma services. We were consulted for medical management. He developed a fever on 07/29 and was found to be positive for flu A. He underwent operative repair of his T12 burst fracture on 07/30/22. 08/02 Patient was seen and examined. He reports 10/10 pain. Working well with PT. Reports dry cough. CBC Hg 11.1 Hct 33.1 Plt 131. CMP Na 133, Ca 8.1, AST 87, T. protein 5.5, alb 2.6. 08/03 Patient was seen and examined. Continued pain in his lower back. Pain is worse when he coughs. We will try Tessalon. Awaiting SNF. Vital signs reviewed General: non toxic, no distress, appears younger than stated age Cardiovascular: S1S2 reg, no murmur Lungs: Decreased breath sounds bilateral, no rhonchi, no rales, no accessory muscle use Abdominal: Soft, nontender to palpation, no guarding Ext: No gross muscle atrophy, no edema b/l lower extremities, no contractures Neuro: No focal neuro deficits. Psych: Alert, oriented, appropriate affect Based on my assessment of this patient, this patient meets a moderate complexity level of care. Patient has an acute diagnosis of T12 burst fracture with moderate stenosis status post ORIF T11-L1 07/31 that poses a threat to life or bodily function. Left rib posterior fracture 5 through 12 L4-5 right transverse process fracture T12 burst fracture with moderate stenosis status post ORIF T11-L1 07/31: Pain management with Flexeril 5 mg PO TID PRN, Gabapentin 300 mg PO TID, Dilaudid 0.5-1 mg IV PRN, Toradol 15 mg IV Q6H, Percocet 5-7.5 mg PO PRN. Orthopedic surgery on board. Acute blood loss anemia: Expected result of surgery. Transfuse if Hg < 7. Influenza A: Completed course of Tamiflu. Tessalon 100 mg PO TID PRN cough. Pulmonary contusion: Pulmonary hygiene. DuoNeb TID scheduled. Pulmonary on board. Hyponatremia: Hypovolemic versus related to liver disease. Improved. Thrombocytopenia Constipation: Miralax 17 g PO QD. Senna 2 tablets PO QD. Alcohol abuse with transaminitis and coagulopathy: CIWA protocol with Ativan dosing per CIWA score (has not required ativan since admission). Thiamine 100 mg PO QD, folic acid 1 mg PO QD. Monitor for significant alcohol withdrawal. Records reviewed from [facility] and it appears his liver enzymes are stable at this time. GERD Esophageal circumferential mural thickening: Outpatient EGD after discharge. CODE STATUS: FULL CODE DVT Prophylaxis: Heparin SQ GI Prophylaxis: Protonix PO Designated medical POA if patient is not able to make medical decisions for themselves: I have reviewed the following revenue cycle consultant notes: Orthopedic, Trauma, Pulmonary note. I have reviewed the results of the following tests: I have ordered the following tests: I have discussed the care of this patient with the following independent historian: Discussed with RN regarding Andrey. I have independently interpreted the following test below: I have discussed the management of this patient with the following physician: Objective - Vital Signs Vital signs: Vital Signs Temp 98.2 F 08/03/23 07:10 Pulse 88 08/03/23 12:52 Resp 19 08/03/23 07:10 BP 143/80 08/03/23 07:10 Pulse Ox 92 L 08/03/23 09:37 FiO2 21 08/01/23 08:06 Intake & Output 08/02/23 08/03/23 08/03/23 18:59 06:59 18:59 Output Total 600 1500 600 Balance -600 -1500 -600 Weight 99.79 kg Output: Urine 600 1500 600 Other: Voiding Method Urinal # Voids 2 - Labs CBC & Chem 7: 08/02/23 06:34 08/02/23 06:34
--- NOTE | 2023-08-03 18:47 | P.PN ---
Subjective Progress Note Date: 08/03/23 58-year-old male without any past medical history, who apparently was at [facility], after falling, 6 days ago. There he was evaluated, and had some x-rays done, which determined that he had some rib fractures on the left side. He apparently hit his head, and did lose consciousness. Apparently he did not have a CAT scan or x-rays of the spine, at the outside facility. The patient presents to the emergency room, complaining of pain in the left side of his chest, from his rib fractures, and some back pain as well. In addition, he cannot take a deep breath. The patient was found to have significant rib fractures on the left, as well as some fractures of the lower thoracic spine, and lumbar spine. Laboratory data includes a white count 4.55, hemoglobin 12.7, hematocrit 37.3, and platelet count 144,000. PT is 13.7 with an INR 1.29. Sodium 133, potassium 4.2, chlorides 100, CO2 26, BUN 16, creatinine 0.7. Close is 111. Calcium 8.2. AST 150. ALT 56. X-rays of the head and cervical spine were negative. Chest CT shows numerous left-sided rib fractures, a compression deformity of T12, and a trace left-sided pleural effusion. There is also cirrhosis and splenomegaly, and hiatal hernia. In addition, there were posterior rib fractures from T4-T12. As well as L4 transverse process nondisplaced fracture, and an L5 transverse process showing a displaced fracture. The patient is seen today July 30, 2023 in follow-up on the regular medical floor. He is currently resting fairly comfortably in bed. He is maintaining O2 saturations in the 90s on 2 L/min per nasal cannula. He has normal saying at 125 MLS per hour. He is now tested positive for influenza A. White count 5.1. Hemoglobin 13.7. Platelets 123. INR 1.2. Sodium 127. Potassium 4.3. Bicarb 26. BUN 14. Creatinine 0.53. AST 196. ALT 58. He remains on bronchodilators. Heparin for DVT prophylaxis. Remains on the CIWA protocol. Has been initiated on Tamiflu. The patient is seen today July 31, 2023 in follow-up on the regular medical floor. He is currently sitting up in bed. Awake and alert in no acute distress. He did undergo surgery yesterday that included ORIF stabilization T11-L1 for his T12 burst fracture. His pain is well-controlled. He denies any worsening shortness of breath, cough or congestion. Continues to maintain O2 saturations in the 90s on room air. Working with the incentive spirometer. Afebrile. Hemodynamically stable. Follow-up CT scan of the spine revealed postsurgical changes and no evidence of acute postop complication. White count 7.0. Hemoglobin 11.6. Platelet count 112. Sodium 132. Potassium 4.5. Bicarb 28. BUN 11. Creatinine 0.51. Glucose 150. He is continued on bronchodilators. Heparin for DVT prophylaxis. Tamiflu for his influenza A infection. On today's evaluation of 08/01/2023, the patient has no specific complaints and the patient is currently on room air oxygen. He is complaining of pain along his rib cage at the site of his rib fracture. He is status post ORIF and stabilization of T11/L1 spine and the patient also had a T12 burst fracture. He is doing well for now. He is using incentive spirometer. Note that during the current hospital stay, the patient also tested positive for influenza A and the patient is currently on Tamiflu. The patient is on DuoNeb updrafts. The patient has been taking Percocet for pain control. He is also on Senokot and milk of mag regarding constipation. There is a white cell count at 7 with a hemoglobin 11.6 and a platelet count of 112. Sodium level is at 132 with a potassium level of 4.5 and a chloride of 102, BUN is 11 with a creatinine of 0.5. He is on room air oxygen. Denies having any specific complaints. On 08/02/2023, patient is being seen for a follow-up. He is still having some congested cough and skeletal chest wall pain especially on the left side of the chest. As mentioned, the patient has COPD and the patient was also diagnosed having an acute influenza infection and the patient currently is on Tamiflu. He is continues to have also issues with back pain. No altered mentation. Is currently on room air oxygen.His pulse ox is in order of 96% on room air oxygen. The white cell count is 4.7 with a hemoglobin of 11.1 and a platelet count of 131. Sodium is at 133, BUN is at 12 with a creatinine of 0.8. LFTs are adequate with an AST of 87 ALT of 31 and a bilirubin level of 0.6. Renal function is stable with a creatinine of 0.8 and a BUN of 12. No other significant events otherwise for now. The patient is on DuoNeb updrafts 3 times a day. He is receiving Dilaudid for pain control in combination with Toradol and Percocet On today's evaluation of 08/03/2023, patient is being seen for a follow-up. Still complaining of cough and congestion and chest wall pain specially on the left. His mobility is still very limited. He was able to have a bowel movement activity. No nausea. No emesis. He is currently on Tamiflu regarding influenza A infection and the patient was also started on steroids. The patient has a white cell count of 4.7 with a with a hemoglobin of 11.1. Sodium levels at 133 with a BUN of 12 with a creatinine of 0.8. He is using the incentive spirometer. No altered mentation. No fever or chills. He is still requiring pain medication including Percocet and Dilaudid on an as-needed basis. Objective - Vital Signs Vital signs: Vital Signs Temp 98.2 F 08/03/23 07:10 Pulse 90 08/03/23 09:46 Resp 19 08/03/23 07:10 BP 143/80 08/03/23 07:10 Pulse Ox 92 L 08/03/23 09:37 FiO2 21 08/01/23 08:06 Intake & Output 08/02/23 08/03/23 08/03/23 18:59 06:59 18:59 Output Total 600 1500 600 Balance -600 -1500 -600 Weight 99.79 kg Output: Urine 600 1500 600 Other: Voiding Method Urinal # Voids 2 - Exam GENERAL EXAM: Alert, 58-year-old male, on room air, comfortable in no apparent distress. HEAD: Normocephalic. EYES: Normal reaction of pupils, equal size. NOSE: Clear with pink turbinates. THROAT: No erythema or exudates. NECK: No masses, no JVD. CHEST: No chest wall deformity. LUNGS: Equal air entry with faint crackles in the posterior bases. CVS: S1 and S2 normal with no audible murmur, regular rhythm. ABDOMEN: No hepatosplenomegaly, normal bowel sounds, no guarding or rigidity. SPINE: No scoliosis or deformity, surgical dressing dry and intact. SKIN: No rashes CENTRAL NERVOUS SYSTEM: No focal deficits, tone is normal in all 4 extremities. EXTREMITIES: There is no peripheral edema. No clubbing, no cyanosis. Peripheral pulses are intact. - Labs CBC & Chem 7: 08/02/23 06:34 08/02/23 06:34 Labs: Abnormal Lab Results - Last 24 Hours (Table) 08/02/23 08/02/23 Range/Units 06:34 06:34 RBC 3.57 L (4.40-5.60) X 10*6/uL Hgb 11.1 L (13.0-17.0) g/dL Hct 33.1 L (39.6-50.0) % RDW 14.8 H (11.5-14.5) % Plt Count 131 L (140-440) X 10*3/uL Sodium 133 L (135-145) mmol/L Calcium 8.1 L (8.7-10.3) mg/dL AST 87 H (14-35) U/L Total Protein 5.5 L (6.2-8.2) g/dL Albumin 2.6 L (3.8-4.9) g/dL Albumin/Globulin Ratio 0.90 L (1.60-3.17) Ratio Assessment and Plan Plan: Status post fall, with multiple fractures including fractures of T12 with retropulsion, multiple left-sided rib fractures, and transverse fractures of L4 and L5. Open reduction internal fixation of T12 with T11-L1 stabilization for T12 fracture performed on July 30, 2023. Postoperative day # 4 L4-L5 right transverse process fracture Pulmonary contusion Acute influenza A infection, currently on Tamiflu, and the patient was also given prednisone burst taper starting with 40 mg p.o. daily. Left rib fracture 5 through 12 posterior, nondisplaced Chest wall pain secondary to above Alcoholism History of tobacco use, and possible underlying COPD Plan: Clinically stable although the patient continues to have cough congestion and some ongoing musculoskeletal chest wall pain on the left. Continue prednisone burst taper starting with 40 mg p.o. daily Continue Tamiflu Provide the patient incentive spirometer Continue pain control and the patient is currently on Percocet. Patient was able to have a bowel movement activity today. Encourage increased use of the incentive spirometer Currently stable and on room air We will continue to follow. No interval worsening in oxygenation. Continue awaiting the back brace. Increase mobility. Will continue to follow.
--- NOTE | 2023-08-04 06:25 | P.OP ---
Date of Procedure: 07/30/23 Preoperative Diagnosis: 1. T 12 AO TYPE A4/B3 FRACTURE, UNSTABLE 2. T11 LAMINA FRACTURE 3. S/P FALL DOWN STAIRS 4. LOW BACK PAIN 5. COMPLEX MEDICAL PATIENT, INFLUENZA A FOUND IN HOPSPITAL Postoperative Diagnosis: 1. T 12 AO TYPE A4/B3 FRACTURE, UNSTABLE 2. T11 LAMINA FRACTURE 3. S/P FALL DOWN STAIRS 4. LOW BACK PAIN 5. COMPLEX MEDICAL PATIENT, INFLUENZA A FOUND IN HOPSPITAL Procedure(s) Performed: 1. T12 OPEN TREATMENT FRACTURE 2. T11-L1 POSTEROLATERAL STABILIZING INSTRUMENTATION 3. INSERTION OF BILATERAL SPINE HUNG REDUCTION SYSTEM T12 4. T12 VERTEBRAL BODY BIOPSY WITH CEMENT PLACEMENT FOR SPINE HUNG STABILITY 5. USE OF Teliris IO NAVIGATION FOR SCREW AND SPINE HUNG PLACEMENT USE OF IONM ALL SCREWS TESTING > 20mA EXPECTED CODES: 47607, 35235, 55421 Implants: -JUAN EVEREST SCREW AND JORGE SYSTEM Anesthesia: GETA Surgeon: Ariel Mccall Business Management Professor #1: Myles Madrigal (was present and assisted with all aspects of the case from position to closure) Estimated Blood Loss (ml): 150 IV fluids (ml): 1,200 Urine output (ml): 300 Pathology: other (T12 vertebral body) Condition: stable Disposition: PACU Indications for Procedure: MAX SIN is a 58 YO MALE presenting for evaluation of mid and low back pain after fall down stairs. It was my pleasure to have seen and examined MAX SIN . In our visit today we have had a chance to go over subjective complaints, physical examination findings and treatments including the natural course history without intervention and various interventional options. The patients imaging demonstrates T12 unstable burst fracture with posterior element involvement and moderate stenosis due to retropulsion and kyphosis. On physical exam, MAX SIN demonstrates severe low and mid/low back pain, inability to ambulate due to pain as well as increased paresthesias in thighs. No bowel or bladder issues. 4+ to 5/5 all LE and UE. TTp midline T and L spine. NO C spine TTP. I have explained to the patient that as their condition progresses it will cause further neurological deficits and eventual paralysis. Based on the patients imaging, physical exam, and the rapid progression and disabling nature of their symptoms, at this time I recommend surgery in the form or a: T12 ORIF with stabilization. I discussed the risk and benefits of this procedure at length with MAX SIN . The patient agreed to considered pursuing the procedure abovementioned. Prior to surgery, she should follow up with her PCP (Cardio, ID, IM etc) for clearance. Questions were invited and answered, and the patient wishes to proceed as outlined below. Currently, I am recommendin. OPEN TREATMENT T12 FRACTURE WITH T11-L1 STABILIZATION Description of Procedure: T11-L1 stabilization with T12 SPINE HUNG (ELISEO, SP CLAMP) The patient was seen and examined in the preoperative area. All preoperative protocols were followed. Informed consent was obtained, risks and benefits of the procedure were discussed at length. Risks including bleeding infection damage to the surrounding tissue and risk of reoperation were discussed with the patient. Risk of anesthesia up to and including was discussed with the patient. These are outlined in the risk review. They were willing to accept these risks and all of the risks of surgery. The patient was given a weight- based dose of antibiotics in the form of 2 g Ancef. The patient was seen and evaluated by the anesthesia team who deemed them fit for surgery. The site was marked, the patient was willing to proceed with the procedure. The patient was transferred to the operative suite by the Department of anesthesia. They were then drifted off to sleep by the department anesthesia and GETA was performed. The patient tolerated this well. [Tripp catheter was placed by nursing staff, atraumatically]. Once confirmation of lines and ventilation the patient was transferred to a [prone [place] table very carefully]. All bony prominences including wrists, elbows, axilla, chest, hips, and thighs, and feet were padded very well. Special attention was paid to the genitalia and these were padded accordingly. SCDs were placed on bilateral lower extremities and were connected. Arms were well padded and placed [on arm boards up and out in the 90/90 position]. Once in position, again we confirmed good ventilation capabilities and that lines were running appropriately. The patient's thoracolumbar spine was then exposed. 1010s were placed outlining the incision site. Standard alcohol was used to clean the incision site and allowed to dry. C-arm was used to needle localize and then biomark the patient and confirm level for incision which was marked with a skin marker. Operative briefing was performed with all teams and everyone in agreement to proceed. The patient was then prepped and draped in a normal sterile fashion. Timeout was then performed and all parties were in agreement with the procedure to be performed. Needle was then placed again sterilely at the T12 region and skin incision was then made over the SP of T12 for the SP clamp for ELISEO trackers; It was then draped in a 3-D C-arm and was obtained from the area of interest for [place] navigation. Once then was registered and confirmed to be accurately navigated Jamshidi was placed into bilateral pedicles at T11 followed by a wire and Jamshidi was removed we then placed him into T12 bilaterally and then placed wires and the void as well as L1 b/l. AP and lateral imaging confirmed good placement of wires. We then navigated screws over these wires into position in the levels indicated T11-L1. The screws were tested and all tested above 20 mA. AP and lateral confirmed good placement of screws. We then proceeded with biopsy and reduction of T12 with Sine Hung system. Wire exchange was done over Jamshidi into the T12 vertebral body into optimal position on AP and LAT for the Spine jacks. We then performed a biopsy of the vertebral body using a biopsy needle. We then performed drilling through the Spine Hung cannulas and took this bone for sample as well. We placed the trials in position and confirmed good position for reduction on AP and LAT images. The Spine Jacks were then inserted bilateral and sequentially expanded under LAT fluoro and good reduction of the fracture, yazidi of vertebral body height and alignment was obtained. Once there was good yazidi the Spine Jacks were back filled with cement to secure them in position as well as the reduction. AP and LAT confirmed good fill and no extravasation. The patient remained stable throughout cementation and there was no cement extravasation angiogram a myelogram. We then sized and selected rods for the area rods were then placed subfascially through the tulips of each screw. Set screws were then placed and all screws to secure the rods bilaterally. Set screws were then final-tightened and tabs broken off the screws. Final imaging confirmed good placement of rods and screws, good reduction and stabilization. Posterior laterally we placed magna toss. We irrigated the wounds thoroughly with normal sterile saline. The deep fascia was closed with 0 Vicryl superficial subcu closed with 2-0 Vicryl and skin closed with skin sanjay the wound edges approximated very well. wounds were then cleaned and sterilely dressed without dressings. The patient was transferred back to their hospital bed atraumatically. Patient was then awakened and extubated by the department of anesthesia having tolerated the procedure very well with no complications. They were transferred to the postoperative care unit in stable condition.
[2023-08-04 08:20] VITALS: TEMP 98.2
--- NOTE | 2023-08-04 11:27 | P.PN ---
Subjective Progress Note Date: 08/04/23 58-year-old male with history of psoriasis, GERD, and chronic knee pain who presented to the emergency department with worsening back pain. Patient had a significant fall down the stairs about 1 week prior without loss of consciousness. He was initially seen at an outside hospital and was found to have rib fractures and was sent home. He underwent extensive evaluation in the ED which demonstrated left posterior rib fractures 5 through 12, T12 burst fracture, and circumferential esophageal thickening. Patient was subsequently admitted to trauma services. We were consulted for medical management. He developed a fever on 07/29 and was found to be positive for flu A. He underwent operative repair of his T12 burst fracture on 07/30/22. 08/02 Patient was seen and examined. He reports 10/10 pain. Working well with PT. Reports dry cough. CBC Hg 11.1 Hct 33.1 Plt 131. CMP Na 133, Ca 8.1, AST 87, T. protein 5.5, alb 2.6. 08/03 Patient was seen and examined. Continued pain in his lower back. Pain is worse when he coughs. We will try Tessalon. Awaiting SNF. Patient was seen and examined. Continued pain in his lower back and left ribs. Tessalon helps with cough. Discussed with Tiffany PACKAGING DESIGNER, plans for discharge to SNF today. We will do med rec. Discharge Medications: Cefadroxil 500 mg PO BID x 5 days. Flexeril 5 mg PO TID PRN pain, Percocet 7.5 mg PO Q4H PRN pain, Gabapentin 300 mg PO TID. Tessalon 200 mg PO TID PRN cough. Prednisone taper (40 mg PO QD x 3 days, 30 mg PO QD x 3 days, 20 mg PO QD x 3 days, 10 mg PO QD x 3 days). Protonix 40 mg PO QD while on Prednisone. Folic acid, Thamine, Multivitamin. Vital signs reviewed General: non toxic, no distress, appears younger than stated age Cardiovascular: S1S2 reg, no murmur Lungs: Decreased breath sounds bilateral, no rhonchi, no rales, no accessory muscle use Abdominal: Soft, nontender to palpation, no guarding Ext: No gross muscle atrophy, no edema b/l lower extremities, no contractures Neuro: No focal neuro deficits. Psych: Alert, oriented, appropriate affect Based on my assessment of this patient, this patient meets a moderate complexity level of care. Patient has an acute diagnosis of T12 burst fracture with moderate stenosis status post ORIF T11-L1 07/31 that poses a threat to life or bodily function. Left rib posterior fracture 5 through 12 L4-5 right transverse process fracture T12 burst fracture with moderate stenosis status post ORIF T11-L1 07/31: Pain management with Flexeril 5 mg PO TID PRN, Gabapentin 300 mg PO TID, Dilaudid 0.5-1 mg IV PRN, Toradol 15 mg IV Q6H, Percocet 5-7.5 mg PO PRN. Orthopedic surgery on board. Acute blood loss anemia: Expected result of surgery. Transfuse if Hg < 7. Influenza A: Completed course of Tamiflu. Tessalon 200 mg PO TID PRN cough. Prednisone taper starting at 40 mg PO QD. Pulmonary contusion: Pulmonary hygiene. DuoNeb TID scheduled. Pulmonary on board. Hyponatremia: Hypovolemic versus related to liver disease. Improved. Thrombocytopenia Constipation: Miralax 17 g PO QD. Senna 2 tablets PO QD. Alcohol abuse with transaminitis and coagulopathy: CIWA protocol with Ativan dosing per CIWA score (has not required ativan since admission). Thiamine 100 mg PO QD, folic acid 1 mg PO QD. Monitor for significant alcohol withdrawal. Records reviewed from [facility] and it appears his liver enzymes are stable at this time. GERD Esophageal circumferential mural thickening: Outpatient EGD after discharge. CODE STATUS: FULL CODE DVT Prophylaxis: Heparin SQ GI Prophylaxis: Protonix PO Designated medical POA if patient is not able to make medical decisions for themselves: I have reviewed the following residential property consultant notes: Orthopedic, Trauma, Pulmonary note. I have reviewed the results of the following tests: I have ordered the following tests: I have discussed the care of this patient with the following independent historian: Discussed with RN regarding Andrey. I have independently interpreted the following test below: I have discussed the management of this patient with the following physician: Discussed with Tiffany DEL ANGEL. Objective - Vital Signs Vital signs: Vital Signs Temp 98.2 F 08/04/23 08:08 Pulse 75 08/04/23 10:10 Resp 16 08/04/23 08:08 BP 144/83 08/04/23 08:08 Pulse Ox 96 08/04/23 10:00 FiO2 21 08/01/23 08:06 Intake & Output 08/03/23 08/04/23 08/04/23 18:59 06:59 18:59 Intake Total 500 Output Total 2600 Balance -2100 Intake: Oral 500 Output: Urine 2600 Other: # Voids 1 1 - Labs CBC & Chem 7: 08/02/23 06:34 08/02/23 06:34 Labs: Microbiology - Last 24 Hours (Table) 07/29/23 16:30 Blood Culture - Final Blood 07/29/23 16:34 Blood Culture - Final Blood
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
[2023-08-04 15:30] VITALS: BP 150/79; PULSE 93; RESP 18
--- NOTE | 2023-08-04 16:19 | P.PN ---
Subjective Progress Note Date: 08/04/23 58-year-old male without any past medical history, who apparently was at [facility], after falling, 6 days ago. There he was evaluated, and had some x-rays done, which determined that he had some rib fractures on the left side. He apparently hit his head, and did lose consciousness. Apparently he did not have a CAT scan or x-rays of the spine, at the outside facility. The patient presents to the emergency room, complaining of pain in the left side of his chest, from his rib fractures, and some back pain as well. In addition, he cannot take a deep breath. The patient was found to have significant rib fractures on the left, as well as some fractures of the lower thoracic spine, and lumbar spine. Laboratory data includes a white count 4.55, hemoglobin 12.7, hematocrit 37.3, and platelet count 144,000. PT is 13.7 with an INR 1.29. Sodium 133, potassium 4.2, chlorides 100, CO2 26, BUN 16, creatinine 0.7. Close is 111. Calcium 8.2. AST 150. ALT 56. X-rays of the head and cervical spine were negative. Chest CT shows numerous left-sided rib fractures, a compression deformity of T12, and a trace left-sided pleural effusion. There is also cirrhosis and splenomegaly, and hiatal hernia. In addition, there were posterior rib fractures from T4-T12. As well as L4 transverse process nondisplaced fracture, and an L5 transverse process showing a displaced fracture. The patient is seen today July 30, 2023 in follow-up on the regular medical floor. He is currently resting fairly comfortably in bed. He is maintaining O2 saturations in the 90s on 2 L/min per nasal cannula. He has normal saying at 125 MLS per hour. He is now tested positive for influenza A. White count 5.1. Hemoglobin 13.7. Platelets 123. INR 1.2. Sodium 127. Potassium 4.3. Bicarb 26. BUN 14. Creatinine 0.53. AST 196. ALT 58. He remains on bronchodilators. Heparin for DVT prophylaxis. Remains on the CIWA protocol. Has been initiated on Tamiflu. The patient is seen today July 31, 2023 in follow-up on the regular medical floor. He is currently sitting up in bed. Awake and alert in no acute distress. He did undergo surgery yesterday that included ORIF stabilization T11-L1 for his T12 burst fracture. His pain is well-controlled. He denies any worsening shortness of breath, cough or congestion. Continues to maintain O2 saturations in the 90s on room air. Working with the incentive spirometer. Afebrile. Hemodynamically stable. Follow-up CT scan of the spine revealed postsurgical changes and no evidence of acute postop complication. White count 7.0. Hemoglobin 11.6. Platelet count 112. Sodium 132. Potassium 4.5. Bicarb 28. BUN 11. Creatinine 0.51. Glucose 150. He is continued on bronchodilators. Heparin for DVT prophylaxis. Tamiflu for his influenza A infection. On today's evaluation of 08/01/2023, the patient has no specific complaints and the patient is currently on room air oxygen. He is complaining of pain along his rib cage at the site of his rib fracture. He is status post ORIF and stabilization of T11/L1 spine and the patient also had a T12 burst fracture. He is doing well for now. He is using incentive spirometer. Note that during the current hospital stay, the patient also tested positive for influenza A and the patient is currently on Tamiflu. The patient is on DuoNeb updrafts. The patient has been taking Percocet for pain control. He is also on Senokot and milk of mag regarding constipation. There is a white cell count at 7 with a hemoglobin 11.6 and a platelet count of 112. Sodium level is at 132 with a potassium level of 4.5 and a chloride of 102, BUN is 11 with a creatinine of 0.5. He is on room air oxygen. Denies having any specific complaints. On 08/02/2023, patient is being seen for a follow-up. He is still having some congested cough and skeletal chest wall pain especially on the left side of the chest. As mentioned, the patient has COPD and the patient was also diagnosed having an acute influenza infection and the patient currently is on Tamiflu. He is continues to have also issues with back pain. No altered mentation. Is currently on room air oxygen.His pulse ox is in order of 96% on room air oxygen. The white cell count is 4.7 with a hemoglobin of 11.1 and a platelet count of 131. Sodium is at 133, BUN is at 12 with a creatinine of 0.8. LFTs are adequate with an AST of 87 ALT of 31 and a bilirubin level of 0.6. Renal function is stable with a creatinine of 0.8 and a BUN of 12. No other significant events otherwise for now. The patient is on DuoNeb updrafts 3 times a day. He is receiving Dilaudid for pain control in combination with Toradol and Percocet On today's evaluation of 08/03/2023, patient is being seen for a follow-up. Still complaining of cough and congestion and chest wall pain specially on the left. His mobility is still very limited. He was able to have a bowel movement activity. No nausea. No emesis. He is currently on Tamiflu regarding influenza A infection and the patient was also started on steroids. The patient has a white cell count of 4.7 with a with a hemoglobin of 11.1. Sodium levels at 133 with a BUN of 12 with a creatinine of 0.8. He is using the incentive spirometer. No altered mentation. No fever or chills. He is still requiring pain medication including Percocet and Dilaudid on an as-needed basis. On today's evaluation of 2023, the patient is being seen for a follow-up. Doing well without any significant complaints other than the skeletal chest wall pain along with some cough and congestion. Nevertheless, the patient is currently on room air oxygen with a pulse ox of 98%. Sodium levels at 133 with a potassium level of 4.2 and the BUN is 12 with a creatinine of 0.8. The previous count of 4.7 with a hemoglobin of 11.1. The patient has adequate pain control for now. As mentioned, the patient had trauma as the patient fell and had multiple left-sided rib fractures and the patient has a compression deformity of the superior endplate of T12 vertebral body and retroperitoneal fragments causing moderate degree of central canal stenosis and the patient underwent spine surgery. The patient has no fever. No nausea or vomiting. No diarrhea. He will be completing a prednisone burst taper and outpatient basis and the patient is going to be discharged on a combination of Neurontin, Flexeril and Percocet. Objective - Vital Signs Vital signs: Vital Signs Temp 98.2 F 08/04/23 08:08 Pulse 75 08/04/23 10:10 Resp 16 08/04/23 08:08 BP 144/83 08/04/23 08:08 Pulse Ox 96 08/04/23 10:00 FiO2 21 08/01/23 08:06 Intake & Output 08/03/23 08/04/23 08/04/23 18:59 06:59 18:59 Intake Total 500 Output Total 2600 Balance -2100 Intake: Oral 500 Output: Urine 2600 Other: # Voids 1 1 - Exam GENERAL EXAM: Alert, 58-year-old male, on room air, comfortable in no apparent distress. HEAD: Normocephalic. EYES: Normal reaction of pupils, equal size. NOSE: Clear with pink turbinates. THROAT: No erythema or exudates. NECK: No masses, no JVD. CHEST: No chest wall deformity. LUNGS: Equal air entry with faint crackles in the posterior bases. CVS: S1 and S2 normal with no audible murmur, regular rhythm. ABDOMEN: No hepatosplenomegaly, normal bowel sounds, no guarding or rigidity. SPINE: No scoliosis or deformity, surgical dressing dry and intact. SKIN: No rashes CENTRAL NERVOUS SYSTEM: No focal deficits, tone is normal in all 4 extremities. EXTREMITIES: There is no peripheral edema. No clubbing, no cyanosis. Peripheral pulses are intact. - Labs CBC & Chem 7: 08/02/23 06:34 08/02/23 06:34 Labs: Microbiology - Last 24 Hours (Table) 07/29/23 16:30 Blood Culture - Final Blood 07/29/23 16:34 Blood Culture - Final Blood Assessment and Plan Plan: Status post fall, with multiple fractures including fractures of T12 with retropulsion, multiple left-sided rib fractures, and transverse fractures of L4 and L5. Open reduction internal fixation of T12 with T11-L1 stabilization for T12 fracture performed on July 30, 2023. Postoperative day # 5 L4-L5 right transverse process fracture Pulmonary contusion, stable, currently on room air oxygen with a pulse ox of 98% Acute influenza A infection, currently on Tamiflu, and the patient was also given prednisone burst taper starting with 40 mg p.o. daily. Left rib fracture 5 through 12 posterior, nondisplaced Chest wall pain secondary to above Alcoholism History of tobacco use, and possible underlying COPD Plan: Clinically stable although the patient continues to have cough congestion and some ongoing musculoskeletal chest wall pain on the left. Continue prednisone burst taper starting with 40 mg p.o. daily at the time of discharge Completed course of Tamiflu Pain control with a combination of Neurontin, Flexeril and Percocet Provide the patient incentive spirometer Increase mobility Likely home discharge today.
== END 2023-08-04 16:54 | DRG 912 ==
LOC: EC 13:16 → 4SSUR 17:22
PROVIDERS: ADMIT Surgery; ATTEND Surgery
PROC: XNU4356 Supplement Thoracic Vertebra with Mechanically Expandable (Paired) Synthetic Substitute, Percutaneous Approach, New Technology Group 6 (ICD-10-PCS; principal; 2023-07-30 10:40)
PROC: 0PS404Z Reposition Thoracic Vertebra with Internal Fixation Device, Open Approach (ICD-10-PCS; principal; 2023-07-30 10:40)
PROC: 0PH404Z Insertion of Internal Fixation Device into Thoracic Vertebra, Open Approach (ICD-10-PCS; principal; 2023-07-30 10:40)
PROC: 0PB40ZX Excision of Thoracic Vertebra, Open Approach, Diagnostic (ICD-10-PCS; principal; 2023-07-30 10:40)
PROC: XW0V0P7 Introduction of Gentamicin-eluting Bone Void Filler into Bones, Open Approach, New Technology Group 7 (ICD-10-PCS; principal; 2023-07-30 10:40)
DX: S22.082A Unstable burst fracture of T11-T12 vertebra, initial encounter for closed fracture (principal); D68.9 Coagulation defect, unspecified; D62 Acute posthemorrhagic anemia; D69.6 Thrombocytopenia, unspecified; K59.00 Constipation, unspecified; E87.1 Hypo-osmolality and hyponatremia; Z71.6 Tobacco abuse counseling; F17.200 Nicotine dependence, unspecified, uncomplicated; W10.9XXA Fall (on) (from) unspecified stairs and steps, initial encounter; Z71.3 Dietary counseling and surveillance; S22.42XA Multiple fractures of ribs, left side, initial encounter for closed fracture; Z28.21 Immunization not carried out because of patient refusal; F10.20 Alcohol dependence, uncomplicated; S32.049A Unspecified fracture of fourth lumbar vertebra, initial encounter for closed fracture; S32.059A Unspecified fracture of fifth lumbar vertebra, initial encounter for closed fracture; M48.04 Spinal stenosis, thoracic region; K74.60 Unspecified cirrhosis of liver; S06.0XAA Concussion with loss of consciousness status unknown, initial encounter; Y08.89XD Assault by other specified means, subsequent encounter; S27.329A Contusion of lung, unspecified, initial encounter; L40.9 Psoriasis, unspecified; M25.569 Pain in unspecified knee; G89.29 Other chronic pain; J10.1 Influenza due to other identified influenza virus with other respiratory manifestations; R50.9 Fever, unspecified; J98.11 Atelectasis; K21.9 Gastro-esophageal reflux disease without esophagitis; K44.9 Diaphragmatic hernia without obstruction or gangrene; M40.209 Unspecified kyphosis, site unspecified; M47.816 Spondylosis without myelopathy or radiculopathy, lumbar region; M48.061 Spinal stenosis, lumbar region without neurogenic claudication; Z79.899 Other long term (current) drug therapy; Y92.009 Unspecified place in unspecified non-institutional (private) residence as the place of occurrence of the external cause
CPT/HCPCS: 36415; 70450; 71045; 71250; 72070; 72125; 72128; 72131; 80048; 80053; 81003; 82550; 83605; 85025; 85027; 85610; 85730; 87040; 87636; 88307; 88311; 93005; 93306; 94640; 94667; 94760; 96361; 96374; 96375; 99291